=== PATIENT | female | born 1970 | race Two or more races ===

== ENCOUNTER 2025-02-01 08:11 | Outpatient (REF) | payer OTHER, SELFPAY ==
--- NOTE | ~2025-02-01 | XR_ITS ---
EXAMINATION: XR KNEE 3 VIEWS LEFT HISTORY: M25.569 - Pain in unspecified knee COMPARISON: There are no prior studies available for comparison. FINDINGS: Standing AP views of both knees and additional lateral and sunrise patellar views of the left knee are submitted. Osseous mineralization is normal. There is no fracture or dislocation. There is moderate osteoarthritis of the medial compartment with joint space narrowing and osteophyte formation. There is mild narrowing of the patellofemoral compartment. There is chondrocalcinosis. There is no joint effusion. XR/XR knee LT 3V IMPRESSION: Osteoarthritis of the left knee as described. Electronically signed by: Guille Nixon MD 02/01/2025 03:06 PM EDT
--- OUTSIDE RECORDS SUMMARY | 2025-02-01 08:16 | XMS_ITS | Clinical Summary ---
Author Organization [facility] Address [address] [place] [phone] Phone Care Team Providers Care Block Handler Name Role Phone Ashish Rangel MD Primary Care Prov ider Allergies No known active allergies Medications acetaminophen (TYLENOL) 325 mg tablet Take 650 mg by mouth every 6 (six) hours as needed. Active TRULICITY 1.5 mg/0.5 mL subcutaneous injection INJECT 1.5 MG EVERY WEEK BY SUBCUTANEOUS ROUTE FOR 90 DAYS. 4 Active losartan (COZAAR) 25 MG tablet Take 25 mg by mouth daily. for blood pressure 4 Active atorvastatin (LIPITOR) 20 MG tablet Take 20 mg by mouth daily. Active Hospital, Clinic, or Other Facility Administered Medication Ordered Dose Route Frequency Start Date End Date Status lidocaine (XYLOCAINE) 1% injection 1 mL 1 mL See Adm Inst See admin instructions 06/23/2024 Active triamcinolone acetonide (KENALOG-40) 40 mg/mL injection 40 mg 40 mg See Adm Inst See admin instructions 06/23/2024 Active Active Problems No known active problems Social History Tobacco Use Types Packs/Day Years Used Date Smoking Tobacco: Never Smokeless Tobacco: Never Tobacco Cessation:Counseling Given: Not Answered Alcohol Use Standard Drinks/Week Comments No 0 (1 standard drink = 0.6 oz pur e alcohol) Education Answer Date Recorded Are you interested in more education? Not on rob e 11/09/2022 Are you concerned about learning? Not on file 11/09/2022 No 11/09/2022 No 11/09/2022 Digital Access Answer Date Recorded No 12/08/2022 No 12/08/2022 No 12/08/2022 Reliable internet access at home? Not on file 12/08/2022 Device with a working camera? Not on file Comments No Sex and Gender Information Value Date Recorded Sex Assigned at Not on file Legal Sex Female 9:34 PM EDT Gender Identity Not on file Sexual Orientation Not on file Last Filed Vital Signs Vital Sign Reading Time Taken Comments Blood Pressure 148/90 10/18/2022 1:30 PM EDT Pulse 68 10/18/2022 1:30 PM EDT Temperature 36.4 C (97.5 F) 10/18/2022 1:25 PM EDT Respiratory Rate 18 10/18/2022 1:30 PM EDT Oxygen Saturation 96% 10/18/2022 1:30 PM EDT Inhaled Oxygen Concentration - - Weight 76.7 kg (169 lb) 10/12/2022 9:25 AM EDT Height 152.4 cm (5') 10/12/2022 9:25 AM EDT Body Mass Index 33.01 10/12/2022 9:25 AM EDT Plan of Treatment Health Maintenance Due Date Last Done Comments DEPRESSION SCREENING 1982 HEPATITIS C SCREENING 1988 HIV ONE-TIME SCREENING (18-65 YEARS) 1988 COLOGUARD 12/31/2015 COLONOSCOPY 12/31/2015 COLORECTAL CANCER SCREENING 12/31/2015 FIT TEST 12/31/2015 FOBT 12/31/2015 SIGMOIDOSCOPY 12/31/2015 VIRTUAL COLONOSCOPY 12/31/2015 CREATININE LEVEL 01/11/2019 01/11/2018 POTASSIUM LEVEL 01/11/2019 01/11/2018 MAMMOGRAM 12/15/2021 12/16/2019, 04/14, 04/17/2017, Additional history exists COVID-19 VACCINE ( season) 2024 07/10/2021, 10/26/2020, 09/26/2020 PAP SMEAR 08/08/2025 08/08/2022, 07/12/2021 SCREENING FOR DIABETES 10/17/2026 , 12/26/2022, 01/11/2018 Adult Td,Tdap Booster 02/14/2027 02/14/2017, 007 LIPID PANEL 02/27/2029 02/28/2024, 02/12, 11/26/2023, Additional history exists SMOKING STATUS SCREENING (Once After 26 Yrs) Completed 10/18/2022 PNEUMOCOCCAL VACCINES (50+ years) Completed 01/29/2024 ZOSTER VACCINES Completed 01/29/2024, 07/31/2021 HEPATITIS A VACCINES Aged Out No long er eligible based on patient's age to complete this topic HIB VACCINES Aged Out No longer eligi ble based on patient's age to complete this topic MENINGOCOCCAL VACCINES (ACWY) Aged Out No longer eligible based on patient's age to complete this topic MENINGOCOCCAL VACCINES (B) Aged Out N o longer eligible based on patient's age to complete this topic Medical Devices Not on file Procedures Procedure Name Priority Date/Time Associated Diagnosis Comments PAP TEST Routine 08/08/2022 12:00 AM EST BI MAMMOGRAM DIAGNOSTIC WITH TOMOSYNTHESIS WITH CAD (BILATERAL) Routine 12/16/2019 11:02 AM EDT Unspecified lump in unspecified breast BASIC METABOLIC PANEL STAT 01/11/2018 4:51 AM EDT from Last 3 Months or Most Recently Relevant to Health Maintenance Results * Pap Test (08/08/2022 12:00 AM EST) 08/08/2022 08/09/2022 9:1 9 AM EST Narrative SEE NARRATIVE - 08/14/2022 1:48 PM EST [address] [address] Hrbp: Magalie Velez MD 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 PAP SMEAR (SUREPATH) CE: SPECIMEN ADEQUACY: Satisfactory for evaluation; transformation zone absent/insufficient. INTERPRETATION: NEGATIVE FOR INTRAEPITHELIAL LESION OR MALIGNANCY. 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 Electronically Signed Out By: MARIN Bazzi(ASCP) The Pap test is a screening test primarily for squamous cancers and precursors and has associated false-negative and false-positive results. New technologies such as liquid-based preparations may decrease but will not eliminate all false-negative results. Regular sampling and follow-up of unexplained clinical signs and symptoms are recommended to minimize false negative results. PROCEDURES/ADDENDA HPV Testing (Requested) Ordered Date: 08/09/2022 A. PAP SMEAR (SUREPATH) CE: Human Papilloma Virus Test NEGATIVE for high-risk Human Papilloma Virus types 16, 18, 45 and the Other high risk probe set (Includes 31, 33, 35, 39, 51, 52, 56, 58, 59, 66, 68) Note: Testing performed by [employer] HR-HPV analysis. Clinical correlation is advised. This HPV test was performed at [facility], [address] [place] [address]. This test has been FDA approved for [employer]Path cervical cytology specimens. The accuracy and precision of this test for all other specimen sources has been verified in the Cytopathology Laboratory of the [facility] and has not been cleared or approved by the U.S. Food and Drug Administration. Clinical correlation is advised. CLINICAL HISTORY Date of Last Menstrual Period: Not Provided Menstrual History: Unknown Other Clinical Conditions: Screening Pap SPECIMEN SOURCE A: PAP SMEAR (SUREPATH) CE Patient Name: KEDAR CASTILLO : 1970 (Age: 51) Sex: F Institution: [facility] Location: [facility] Date of Collection: 08/08/2022 Date of Reported: 08/14/2022 13:48 Results to: Katia Franklin NP us Katia Franklin NP CYTOLOGY ORDERABLES Fin al Result SEE NARRATIVE * BI MAMMOGRAM DIAGNOSTIC WITH TOMOSYNTHESIS WITH CAD (BILATERAL) (12/16/2019 11:02 AM EDT) Anatomical Region Laterality Modality Breast Left, Breast Right, Breast Bilateral Bila teral Mammography 12/16/2019 11:0 6 AM EDT Impressions 12/16/2019 11:36 AM EDT No findings to account for the patient's left breast pain or lumps. Small simple benign right breast cysts at 10:00 which may potentially account for the patient's previously noted lumps and pain. No mammographic evidence of malignancy. Recommend return to routine annual surveillance. Findings relayed to the patient via the technologist. BI-RADS CATEGORY: 2 - Benign finding. DENSITY: The breast tissue is heterogeneously dense, an appearance which lowers the sensitivity of mammography. POS - [id number] Narrative 12/16/2019 11:36 AM EDT 48-year-old female who presents for bilateral breast pain and lumps which have resolved. Comparison made to previous on 04/24/2017 and as far back as 01/05/2014. Interpretation made in conjunction with computer-aided detection and tomosynthesis. Standard views obtained. The breasts are heterogeneously dense, which may obscure small masses. Stable lobular breast tissue in the upper central right breast on the MLO view only. No discrete mass. New scattered benign right breast and macrocalcifications. No suspicious calcifications, mass or distortion. Bilateral breast ultrasound was obtained. No abnormality in the left breast. In the right breast there is a cluster of simple cysts (largest measuring 9 mm) at 10:00 4 cm from the nipple corresponding to the MLO view mammographic findings. Procedure Note Rylee Lemons MD - 12/16/2019 48-year-old female who presents for bilateral breast pain and lumps whichhave resolved. Comparison made to previous on 04/24/2017 and as far backas 01/05/2014. Interpretation made in conjunction with computer-aideddetection and tomosynthesis. Standard views obtained. The breasts are heterogeneously dense, which mayobscure small masses. Stable lobular breast tissue in the upper centralright breast on the MLO view only. No discrete mass. New scatteredbenign right breast and macrocalcifications. No suspiciouscalcifications, mass or distortion. Bilateral breast ultrasound was obtained. No abnormality in the leftbreast. In the right breast there is a cluster of simple cysts (largestmeasuring 9 mm) at 10:00 4 cm from the nipple corresponding to the MLOview mammographic findings. IMPRESSION: No findings to account for the patient's left breast pain or lumps. Smallsimple benign right breast cysts at 10:00 which may potentially accountfor the patient's previously noted lumps and pain. No mammographicevidence of malignancy. Recommend return to routine annual surveillance.Findings relayed to the patient via the technologist. BI-RADS CATEGORY: 2 - Benign finding. DENSITY: The breast tissue is heterogeneously dense, an appearance whichlowers the sensitivity of mammography. POS - [id number] us Jeff WALTON IMG MG EXAMS Final Result * (ABNORMAL) Basic metabolic panel (01/11/2018 4:51 AM EDT) SODIUM 139 133 - 146 mmol/L [facility] CHLORIDE 101 96 - 108 mmol/L [facility] POTASSIUM 3.7 3.3 - 5.1 mmol/L [facility] CO2 26 21 - 35 mmol/L [facility] BUN 8 6 - 19 mg/dL [facility] CREATININE 0.60 0.5 - 1.5 mg/dL [facility] GLUCOSE 112(H) 70 - 99 mg/dL [facility] CALCIUM 9.0 8.4 - 10.3 mg/dL [facility] EGFR 109 >59 mL/min/1.7 3m2 [facility] Comment:If patient is black, multiply result by 1.159. Estimated glomerular filtration rate calculated using the CKD-EPI equation. ANION GAP 16 10 - 20 mmol/L [facility] Blood 01/11/2018 4:51 AM EDT 01/11/2018 4:58 AM EDT us Sterling Felix MD LAB BLOOD ORDERABLES Final Re sult [facility] [address] [place] [address] from Last 3 Months or Most Recently Relevant to Health Maintenance Insurance [facility] [place] [address] [place] [address] [facility] Advance Directives For more information, please contact: [phone] (9AM - 5PM [facility], Saturday-Saturday) * Full Code (Latest Code Status on File) Date Activated Date Inactivated Comments 10/18/2022 11:12 AM Question Answer Comments Code Status Confirmed With: Patient Care Teams Block Handler Relationship Specialty Start Date End Date Ashish Rangel MD [email or web address] PCP - General Family Medicine 06/01/20 Additional Source Comments The information contained in this document represents components of the legal health record. It is not the complete legal health record.[facility]
--- OUTSIDE RECORDS SUMMARY | 2025-02-01 08:16 | XMS_ITS | Data Portability ---
Author Organization [facility], [facility] Address [address] [place] [address] Care Team Providers Care Insurance Commissioner Name Role Phone LUL GAGE Certified Personal Finance Counselor MARVIN RUGGIERO Primary Care Provider [facility] Orthopedist ARABELLA DIALLO Sleep Medicine MORENA LORD Sports Medicine Assessment Encounter Date Assessment Date Assessment LastModified by Organization Details LastModified Time 07/14/2024 07/14/2024 weightbearing X-rays of the left knee were previously interpreted demonstrating mild OA and chondrocalcinosis Synovial Analysis (04/29/2024) WBC - [address] [place] [place] - 79% PMN - 21% No crystals seen Lyme PCR - negative Not available 07/14/2024 08:30:17 08/11/2024 08/11/2024 weightbearing X-rays of the left knee were previously interpreted demonstrating mild OA and chondrocalcinosis Synovial Analysis (04/29/2024) WBC - [address] [place] - 79% PMN - 21% No crystals seen Lyme PCR - negative Recent MRI of the left knee was independently interpreted demonstrating moderate medial compartment cartilage loss and mild lateral compartment cartilage loss. Fissuring and irregularity of the patellar cartilage consistent with mild chondromalacia. Degenerative tearing of the medial meniscus noted. Not available 08/11/2024 10:57:23 10/28/2024 10/28/2024 weightbearing X-rays of the left knee were previously interpreted demonstrating mild OA and chondrocalcinosis Synovial Analysis (04/29/2024) WBC - [address] [place] - 79% PMN - 21% No crystals seen Lyme PCR - negative MRI of the left knee from 07/2024 was previously interpreted demonstrating moderate medial compartment cartilage loss and mild lateral compartment cartilage loss. Fissuring and irregularity of the patellar cartilage consistent with mild chondromalacia. Degenerative tearing of the medial meniscus noted. Not available 10/28/2024 13:35:38 Plan of Treatment Reminders Order Date Submit Date Provider Last Modified By Organization Details Last Modified Time Details Appointments Same Day Appt, 2024 09:15A M ANTON Zamorano Not available Not available Not available Lab LEYDI (antinucl ear antibodie s) screen, ifa, serum 2023 024 [facility], [address] [place] [address], [id number], 09/06/2024 14:22:40 CBC 2023 024 [facility], [address] [place] [address], [address], 09/04/2024 12:26:22 ESR (erythroc yte sedimenta tion rate), blood 2023 024 [facility], [address] [place] [address], [address], 09/04/2024 14:43:51 C-reactiv e protein, quantitat keara, serum or plasma 2023 024 [facility], [address] [place] [address], [id number], 09/04/2024 14:09:52 Referral orthopedi c surgeon referral - meniscal injury. and OA L knee - has had 2 corticost eroid injection s. S/P MRI [facility] 07/2024. 2024 025 [email or web address] [facility] [place], [address], 11/26/2024 14:48:27 hand surgeon referral 2023 024 [email or web address] Aliya Goodson MD, [address] [place] [address], [address], 05/22/2024 09:37:37 Procedures None recorded. Surgeries None recorded. Imaging US, guidance [email or web address] (Imaging), [address] [place], [address], 10/28/2024 16:27:26 MRI, knee, w/o contrast - MRI left knee eval for meniscal tear Left knee pain and effusion. No relief with over 8 weeks of PT and CSI. X-rays with only minimal OA 2023 [facility] ([facility]), [address], [place], [address], 07/28/2024 17:58:29 electroca rdiogram [address] [facility], [address], [place], [address], 05/22/2024 08:28:37 XR, hand - Bilateral hands 2023 024 [facility] [address], [place], [address], 05/22/2024 12:29:21 Medication Orders Voltaren Arthritis Pain 1 % topical gel 2024 025 [facility][id number], [address] [place], [address], 11/25/2024 16:31:49 meloxicam 15 mg tablet 2023 024 [facility] #[id number], [address] [place], [address], 07/14/2024 09:33:16 naproxen 500 mg tablet 2023 024 [facility] #[id number], [address] [place], [address], 07/14/2024 08:42:07 Patient TargetsNo targets recorded. Patient Instructions Encounter Date Encounter Id Patient Instructions Last Modified By Organization Details Last Modified Time 05/21/2024 [id number] Carpal tunnel syndrome occurs when the median nerve, which runs from the forearm into the palm, is compressed at the wrist. This can lead to pain, numbness, tingling, or weakness in the hand and fingers. Activity Modifications: Limit repetitive hand motions: If possible, reduce activities that require repetitive wrist and hand movements, especially those that involve gripping or wrist flexion. Take frequent breaks: If your work or hobbies involve repetitive hand or wrist actions, take breaks every 10-15 minutes. Avoid extreme wrist positions: Try to keep your wrist in a neutral position. Avoid bending it too far up or down. Wrist Splints Wearing a wrist splint, especially at night, can help keep the wrist in a neutral position and reduce pressure on the median nerve. Follow your healthcare provider s instructions on when and how long to wear the splint each day. Exercises and Stretching Nerve gliding exercises: These can help maintain flexibility and reduce compression of the median nerve. Stretching exercises: Gently stretch your fingers, hands, and wrists to relieve tension. Avoid exercises that cause pain. Avoid Aggravating Factors Limit vibration exposure: Avoid prolonged use of vibrating tools or activities that increase wrist strain. Ergonomics: Ensure that your workspace is set up to minimize wrist strain. Adjust your keyboard, mouse, and chair to avoid wrist flexion or extension. Cold or Heat Therapy Ice packs: Apply an ice pack to the wrist for 10-15 minutes, several times a day, to reduce inflammation and numb pain. Warm compresses: Alternatively, use a warm compress to relax muscles, especially before exercises. Avoid if it increases symptoms. Medications Anti-inflammatory medications, like ibuprofen, may help reduce swelling and relieve pain. If symptoms persist or worsen despite self-care, contact your healthcare provider. Severe pain, increasing numbness, or weakness that affects hand function may require additional treatments, including possible surgical intervention. Pleurisy is inflammation of the pleura, the thin layer of tissue covering the lungs and lining the chest cavity. This inflammation can cause sharp chest pain, especially when breathing, coughing, or sneezing. Although painful, shallow breathing can increase the risk of lung infections. Practice gentle deep breathing exercises to help expand your lungs without causing strain. Avoid strenuous activities that might increase chest pain, like heavy lifting or vigorous exercise, until symptoms improve. Practice good posture: Sitting upright can ease the pressure on your lungs, helping you breathe more comfortably. When to Seek Medical Help: Severe or worsening pain: If your pain increases or spreads, especially if it s affecting other parts of the chest or back. Shortness of breath: If you re finding it increasingly hard to breathe, seek medical help immediately. Fever or chills: Pleurisy can sometimes be caused by an infection, so if you develop a fever, consult your healthcare provider for evaluation. [email or web address] Not available 05/21/2024 16:51:46 07/14/2024 [id number] Have MRI done Use Meloxicam as prescribed Follow-up after your MRI Not available 07/14/2024 08:42:56 All of the patients questions were answered and they understand the plan of care. Thank you for allowing me to participate in the care of your patient. Please feel free to contact me with any questions regarding their care. Not available 07/14/2024 09:30:56 08/11/2024 [id number] Continue with ho me physical therapy Use as needed ibuprofen (Advil) for pain Follow-up as needed Not available 08/11/2024 10:50:35 All of the patients questions were answered and they understand the plan of care. Thank you for allowing me to participate in the care of your patient. Please feel free to contact me with any questions regarding their care. Not available 08/11/2024 10:55:06 10/28/2024 [id number] Rest and ice for the next week Restart physical therapy in approximately 7-10 days Check your blood sugar more often this week and call for any elevated numbers Follow-up as needed for worsening or return of pain Seek immediate attention for any redness, fevers, chills, worsening or severe pain, or any other concerning symptoms. Not available 10/28/2024 13:28:31 All of the patients questions were answered and they understand the plan of care. Thank you for allowing me to participate in the care of your patient. Please feel free to contact me with any questions regarding their care. Not available 10/28/2024 13:33:45 Reason for Referral Hand Surgeon Referral for Ca rpal tunnel syndrome Referring Physician: Ronnie Fernández, [facility], Encounter Date: 05/21/2024 Orthopedic Surgeon Referral for Osteoarthritis of left knee joint meniscal injury. and OA L knee - has had 2 corticosteroid injections. S/P MRI [facility] 07/2024. Referring Physician: Douglas Mendes [facility], Encounter Date: 11/25/2024 Results Created Date Observation Date Name Description Value Unit Range Abnormal Flag Note LastModifiedBy Organization Detail LastModifiedTime 04/29/2004/29/2024 SYNOV IAL FLUID BHAVYA SIS fluid color PALE YELLOW pale yellow Not Available [address], [address], 04/29/2024 14:18:10 04/29/20 24 04/29/2024 SYNOV IAL FLUID BHAVYA SIS fluid clarity HAZY clear Not Available [address], [address], 04/29/2024 14:18:10 04/29/20 24 04/29/2024 SYNOV IAL FLUID BHAVYA SIS fluid viscosity LOW high Not Available [address], [address], 04/29/2024 14:18:10 04/29/20 24 04/29/2024 SYNOV IAL FLUID BHAVYA SIS fluid crystals NONE SEEN none seen Not Available [address], [address], 04/29/2024 14:18:10 04/29/20 24 04/29/2024 SYNOV IAL FLUID BHAVYA SIS WBC-bf count 931 cells /uL 0-200 high Not Available [address], [address], 04/29/2024 14:18:10 04/29/20 24 04/29/2024 SYNOV IAL FLUID BHAVYA SIS RBC-bf count 3000 cells /uL 0-1000 0 Not Available [address], [address], 04/29/2024 14:18:10 04/29/20 24 04/29/2024 SYNOV IAL FLUID BHAVYA SIS MN% 79.2 % 0.0-75 .0 high Not Available [address], [address], 04/29/2024 14:18:10 04/29/20 24 04/29/2024 SYNOV IAL FLUID BHAVYA SIS PMN% 20.8 % 0.0-25 .0 Not Available [address], [address], 04/29/2024 14:18:10 04/29/20 24 04/29/2024 SYNOV IAL FLUID BHAVYA SIS TC-bf absolute 900 cells /uL Not Available [address], [address], 04/29/2024 14:18:10 04/29/20 24 05/01/2024 BORRE CHRISTIANO SPECI ES DNA, QL REAL TIME PCR, MISC source FLUID, SYNOVI AL Not Available [facility] [address], [address], 05/01/2024 21:33:05 04/29/2005/01/2024 BORRE CHRISTIANO SPECI ES DNA, QL REAL TIME PCR, MISC borrelia species DNA, ql real time PCR, misc NOT DETECT ED not detect ed normal This test was devel oped and its bhavya tical perfo rmanc e em cteri stics have been deter mined by [facility]. It has not been clear ed or appro caleb by the FDA. This assay has been valid ated pursu ant to the CLIA regul ation s and is used for clini valentin purpo ses. For addit ional infor camilo burks e refer to https ://ed ucati on.qu estdi lindaChromasun tics. com/f aq/fa q224 (This link is being provi ded for infor castro mcgovern/ educeusebio valentine l purpo ses only. ) Not Available [facility] [address], [address], 05/01/2024 21:33:05 05/01/20 24 05/01/2024 POC GLU POC glu 110 70 - 100 high Not Available [facility] [address] [place] [address], [address], 05/01/2024 08:45:20 09/04/19 25 09/04/2024 CBC WBC 7.79 K/ L 3.98-1 0.04 Not Available [address], [address], 09/04/2024 12:26:22 09/04/19 25 09/04/2024 CBC RBC 4.17 M/ L 3.93-5 .22 Not Available [address], [address], 09/04/2024 12:26:22 09/04/19 25 09/04/2024 CBC HGB 13.2 g/dL 11.2-1 5.7 Not Available [address], [address], 09/04/2024 12:26:22 09/04/19 25 09/04/2024 CBC HCT 39.2 % 34.1-4 4.9 Not Available [address], [address], 09/04/2024 12:26:22 09/04/19 25 09/04/2024 CBC MCV 94.0 fL 79.4-9 4.8 Not Available [address], [address], 09/04/2024 12:26:22 09/04/19 25 09/04/2024 CBC MCH 31.7 pg 25.6-3 2.2 Not Available [address], [address], 09/04/2024 12:26:22 09/04/19 25 09/04/2024 CBC MCHC 33.7 g/dL 32.2-3 5.5 Not Available [address], [address], 09/04/2024 12:26:22 09/04/19 25 09/04/2024 CBC plt 328 K/ L 182-36 9 Not Available [address], [address], 09/04/2024 12:26:22 09/04/19 25 09/04/2024 CBC MPV 10.2 fL 9.4-12 .3 Not Available [address], [address], 09/04/2024 12:26:22 09/04/19 25 09/04/2024 CBC neut% 58.8 % 34.0-7 1.1 Not Available [address], [address], 09/04/2024 12:26:22 09/04/19 25 09/04/2024 CBC neut# 4.59 1.56-6 .13 Not Available [address], [address], 09/04/2024 12:26:22 09/04/19 25 09/04/2024 CBC lymph % 31.1 % 19.3-5 1.7 Not Available [address], [address], 09/04/2024 12:26:22 09/04/19 25 09/04/2024 CBC lymph # 2.42 K/ L 1.18-3 .74 Not Available [address], [address], 09/04/2024 12:26:22 09/04/19 25 09/04/2024 CBC mono% 8.1 % 4.7-12 .5 Not Available [address], [address], 09/04/2024 12:26:22 09/04/19 25 09/04/2024 CBC mono# 0.63 0.24-0 .56 high Not Available [address], [address], 09/04/2024 12:26:22 09/04/19 25 09/04/2024 CBC eo% 1.2 % 0.7-5. 8 Not Available [address], [address], 09/04/2024 12:26:22 09/04/19 25 09/04/2024 CBC eo# 0.09 0.04-0 .36 Not Available [address], [address], 09/04/2024 12:26:22 09/04/19 25 09/04/2024 CBC baso% 0.4 % 0.1-1. 2 Not Available [address], [address], 09/04/2024 12:26:22 09/04/19 25 09/04/2024 CBC baso# 0.03 0.00-0 .08 Not Available [address], [address], 09/04/2024 12:26:22 09/04/19 25 09/04/2024 CBC RDW-CV 12.6 % 11.7-1 4.4 Not Available [address], [address], 09/04/2024 12:26:22 09/04/19 25 09/04/2024 CBC Ig% 0.400 % 0.000- 1.500 Ig % >0.5 Indic ates possi ble Left Shift Not Available [address], [address], 09/04/2024 12:26:22 09/04/19 25 09/04/2024 CBC Ig# 0.030 0.000- 0.093 Not Available [address], [address], 09/04/2024 12:26:22 09/04/19 25 09/04/2024 CBC NRBC% 0.0 % 0.0-0. 2 Not Available [address], [address], 09/04/2024 12:26:22 09/04/19 25 09/04/2024 CBC NRBC# 0.000 0.000- 0.012 Not Available [address], [address], 09/04/2024 12:26:22 09/04/19 25 09/04/2024 HGB A1C hemoglobin A1C 6.3 % 4.8-6. 0 high Goal: <7% in Patie nts with Diabe woody An A1c betwe en 5.7-6 .4% is ident ified as pre-d iabet es and sugge sts risk for progr essio n to diabe woody Two a1c value s of 6.5% or highe r is consi stent with a diagn osis of diabe woody but may need furth er confi rmati on Not Available [address], [address], 09/04/2024 12:48:38 09/04/19 25 09/04/2024 HGB A1C estimated average glucose 134.1 mg/dL Not Available [address], [address], 09/04/2024 12:48:38 09/04/19 25 09/04/2024 C-LUZMA CTIVE PROTE IN (RCRP ) C-reactive protein (rcrp) 2.9 mg/dL 0.5-9. 0 Not Available [address], [address], 09/04/2024 14:09:52 09/04/19 25 09/04/2024 BASIC METAB OLIC PANEL glucose 101 mg/dL 70-100 high Not Available [address], [address], 09/04/2024 14:09:53 09/04/19 25 09/04/2024 BASIC METAB OLIC PANEL BUN 10 mg/dL 7-18 Not Available [address], [address], 09/04/2024 14:09:53 09/04/19 25 09/04/2024 BASIC METAB OLIC PANEL creatinine 0.6 mg/dL 0.8-1. 3 low Not Available [address], [address], 09/04/2024 14:09:53 09/04/19 25 09/04/2024 BASIC METAB OLIC PANEL B/C 16.7 ratio Not Available [address], [address], 09/04/2024 14:09:53 09/04/19 25 09/04/2024 BASIC METAB OLIC PANEL GFR >=60ML /MIN mL/mi n normal >=60m L/min - Emily l or midly reduc ed <60mL /min- Decre ased kidne y funct ion <15mL /min - Kidne y failu re [facility] calcu lates estim ated Glome rular Filtr ation Rate (eGFR ) using the Chron ic Kidne y Disea se Epide miolo gy Colla borat ion (CKD- EPI) Equat ion (Bozena erickson et. al 2020) as recom jae d by the Natio nal Kidne y Found ation . eGFR is based on age, serum creat inine , and sex. CKD-E PI does not calcu late eGFR by race, does not apply to child kierra (age <18 years ), and shoul d not be used in pregn terell. Not Available [address], [address], 09/04/2024 14:09:53 09/04/19 25 09/04/2024 BASIC METAB OLIC PANEL sodium 142 mmol/ L 136-14 5 Not Available [address], [address], 09/04/2024 14:09:53 09/04/19 25 09/04/2024 BASIC METAB OLIC PANEL potassium 4.5 mmol/ L 3.5-5. 1 Not Available [address], [address], 09/04/2024 14:09:53 09/04/19 25 09/04/2024 BASIC METAB OLIC PANEL chloride 105 mmol/ L 96-107 Not Available [address], [address], 09/04/2024 14:09:53 09/04/19 25 09/04/2024 BASIC METAB OLIC PANEL anion gap 9.3 5.0-15 .0 Not Available [address], [address], 09/04/2024 14:09:53 09/04/19 25 09/04/2024 BASIC METAB OLIC PANEL CO2 28 mmol/ L 21-32 Not Available [address], [address], 09/04/2024 14:09:53 09/04/19 25 09/04/2024 BASIC METAB OLIC PANEL calcium 9.1 mg/dL 8.5-10 .3 Not Available [address], [address], 09/04/2024 14:09:53 09/04/19 25 09/04/2024 LIPID PANEL cholesterol 239 mg/dL <200 mg/dl Erica able 200-2 39 mg/dl Borde rline High >240 mg/dl High Not Available [address], [address], 09/04/2024 14:09:54 09/04/19 25 09/04/2024 LIPID PANEL triglyceride s 182 mg/dL <150 mg/dL Emily l 150-1 99 mg/dL Borde rline High 200-4 99 mg/dL High >500 mg/dL Very High Not Available [address], [address], 09/04/2024 14:09:54 09/04/19 25 09/04/2024 LIPID PANEL direct HDL 43 mg/dL <40 mg/dl - Major Risk for CHD >60 mg/dl - Negat keara Risk for CHD Not Available [address], [address], 09/04/2024 14:09:54 09/04/19 25 09/04/2024 LDL - CALCU LATED LDL - calculated 160 RISK CATEG ORY LDL GOAL _ CHD or CHD Risk Equiv alent s <100 mg/dl (10-y ear risk >20%) 2+ Risk Facto rs <130 mg/dl (10-y ear risk <= 20%) 0-1 Risk Facto r <160 mg/dl [facility] all peopl e with 0-1 risk facto r have a 10 year risk <10%, thus 10 year risk asses ment in peopl e with 0-1 risk facto r is not necramesh aleks. Not Available [address], [address], 09/04/2024 14:09:55 09/04/19 25 09/04/2024 ESR sed rate 37.0 0.0-15 .0 high Not Available [address], [address], 09/04/2024 14:43:51 09/04/19 25 09/06/2024 LEYDI SCREE N, IFA, W/REF L TITER AND PATTE RN LEYDI screen, ifa NEGATI VE negati ve normal LEYDI IFA is a first line scree n for detec ting the prese nce of up to appro ximat enoch 150 autoa ntibo dies in vario us autoi mmune disea ses. A negat keara LEYDI IFA resul t sugge sts an LEYDI-a ssoci ated autoi mmune disea se is not prese nt at this time, but is not defin itive . If there is high clini valentin suspi cion for Sjogr en's syndr ome, testi ng for anti- SS-A/ Ro antib renu shoul d be consi dered . Anti- Wendy-1 antib renu shoul d be consi dered for clini brayan suspe cted infla mmato ry myopa ector . AC-0: Negat keara Inter natio nal Conse nsus on LEYDI Allen rns (http s://d oi.or g/10. 1515/ [facility]2017- 0052) For addit ional infor camilo burks e refer to http: //[facility] amando ellis.Que stDia gnost ics.c om/fa q/FAQ 177 (This link is being provi ded for infor castro nal/ educa meme l purpo ses only. ) Not Available [facility] [address] [place] [address], [place], [address], 09/06/2024 14:22:40 09/04/19 25 09/08/2024 MICRO ALBUM IN/CR EATIN INE RATIO PANEL , URINE microalbumin 14.5 mg/L 1.3-20 .0 Not Available [address], [address], 09/08/2024 16:47:55 09/04/19 25 09/08/2024 MICRO ALBUM IN/CR EATIN INE RATIO PANEL , URINE creatinine urine 97.9 mg/dL 30.0-1 25.0 Not Available [address], [address], 09/08/2024 16:47:55 09/04/19 25 09/08/2024 MICRO ALBUM IN/CR EATIN INE RATIO PANEL , URINE microalb/cre at ratio 14.8 mg/g_ creat 0.0-29 .0 Not Available [address], [address], 09/08/2024 16:47:55 05/21/20 24 05/21/2024 elect rocar diogr am No observ ation record ed. [address], [address], 05/22/2024 13:19:07 05/21/20 elect rocar diogr am No observ ation record ed. [email or web address] Not Available 2023 08:22:59 05/21/20 elect rocar diogr am No observ ation record ed. [email or web address] Not Available 2023 08:23:00 05/22/20 24 05/21/2024 elect rocar diogr am No observ ation record ed. [address], [address], 05/22/2024 10:12:54 05/22/20 24 05/22/2024 XR, hand CLINIC AL HISTOR Y: Bilate ral hand pain. TECHNI QUE: Three views of the right and left hands obtain ed. COMPAR SAMUEL: None. FINDIN GS: RIGHT There is no acute fractu re, sublux ation, or disloc ation. The joint spaces are preser caleb. Bone minera lizati on is within normal limits . The soft tissue s are unrema rkable . LEFT There is no acute fractu re, sublux ation, or disloc ation. The joint spaces are preser caleb. There is stable endost eal cortic al thicke adrien of the proxim al phalan x of the first digit. The soft tissue s are unrema rkable . IMPRES MARCI: 1. No acute bone abnorm ality. 2. No signif icant degene rative change . Readin g Physic esau: Carter Johnson ms [facility] ([facility]) [address], [place], [address], 06/08/2024 10:01:14 05/25/20 24 05/25/2024 XR, chest CLINIC AL HISTOR Y: Centra l chest pain. TECHNI QUE: Fronta l view and latera l view of the chest obtain ed. COMPAR SAMUEL: 01/14/20 18 FINDIN GS: The heart is normal in size and config uratio n.Ther e is no hilar or medias tinal enlarg ement. There is no focal lung consol idatio n or infilt rate. The bony thorax is intact . IMPRES MARCI: No acute diseas e. German smiley Physic esau: Carter Johnson ms [facility] (Im[facility]) [address] , [place], [address], 06/08/2024 10:01:14 07/28/19 25 07/24/2024 MRI, knee, w/o contr ast [facility] Access ion Number : [id number] Patien t Name: Mar[facility] Record Number : [id number] Date of : 1970 Date of Exam: 2024 Referr ing Physic esau: [facility] [address] [place] [address], [place] [id number] Exam: MR Knee (C-) CPT 77412 - Left Room Descri ption: Edward Siem Espr 1.5 Histor y: Left knee pain and effusi on with no relief with over 8 weeks of physic al therap y and cortic ostero id inject ion, only minima l osteoa rthrit is on x-ray. Clinic al concer n for menisc al tear. The patien t report s anteri or consta nt left knee pain and swelli ng for about a year with no known injury . Techni que: MRI of the left knee was perfor med withou t intrav enous contra st. Compar samuel: None. Findin gs: Joint effusi on: No joint effusi on is presen t. Hoffa' s fat pad is unrema rkable . Menisc i: Interm ediate intram enisca l signal is seen in the medial menisc us with extens ion to the inferi or articu lar surfac e in the body (image s 10 and 11 of series 4). Slight irregu larity of the free margin in the latera l menisc al body sugges ting free margin frayin g. Tendon s and ligame nts: The ACL and PCL are intact . The collat eral ligame nts are unrema rkable . The ilioti bial band is unrema rkable . The extens or mechan ism appear s normal . Articu lar cartil age and bone: There is chondr al thinni ng in the weight bearin g portio n of both the medial and latera l compar tments with chondr al loss greate st on the medial side. There is irregu lar chondr al loss breaker hand iorly in the medial femora l condyl e with adjace nt subcho ndral marrow edema and subcho ndral cysts. Mild bony prolif eratio n of the medial joint line. There is irregu lar chondr al loss at the patell ar apex and throug hout the trochl ea, greate st in the superi or aspect . Impres marci: 1. Mild to modera te tricom partme ntal degene rative change . 2. Degene ration in the medial menisc us with superi mposed tear along the inferi or articu lar surfac e in the body. 3. Free margin frayin g in the latera l menisc al body.. Electr onical ly Signed By: Mindy Scott ra, MD [address] [facility] ([facility]) [address], [place], [address], 08/11/2024 10:57:20 07/28/19 25 07/24/2024 MRI, knee No observ ation record ed. [facility] [address] [place] [address], [place], [address], 08/11/2024 10:57:21 10/02/19 25 10/01/2024 MAMMO , scree adrien, tomos ynthe sis, bilat eral MAMMO, SCREEN , JAY, BILAT: 025. BI-RAD S: 1 CLINIC AL: 53-yea r old Female for Bilate ral Screen ing Mammog fabiola. Jackelyn Lawrence lifeti me risk of 5.5%. No person al or first- degree family histor y of breast cancer . PRIOR EXAMS: Multip le prior studie s back throug h 2016. MAMMOG LADARIUS TECHNI QUE: 3D mammog ladarius (tomos ynthes is) and 2D mammog ladarius (C-vie w) images are genera lea. Images review ed with a CAD system . DENSIT Y B. There are scatte red areas of fibrog landul ar densit y. MAMMOG LADARIUS FINDIN GS Bilate ral: No suspic ious mass, asymme try, microc alcifi cation , or other abnorm ality seen. CONCLU SIONNo eviden ce of malign terell. RECOMM ENDATI ONS Bilate ralAnn ual screen ing mammog ladarius. ADMINI STRATI VE: A lay summar y was mailed to your patien nica bridges the result s and recomm endati ons for follow -up. OVERAL L ASSESS MENT CATEGO RY BI-RAD S-1: Negati ve. The [employer] o[employer] recomm ends annual screen ing mammog ladarius beginn ing at age 40 for women with averag e risk of breast cancer . ELECTR ONICAL LY SIGNED : Carter Johnson ms, M.D. on 2024 at 03:13: 24 PM German g Physic esau: Carter Johnson ms [email or web address] [facility] (Imaging) [address] , [place], [id number], 10/02/2024 09:07:36 Result Notes Documentation Provider Name and Address Organization Details Recorded Time Xr, Hand : CLINICAL HISTORY: Bilateral hand pain. TECHNIQUE: Three views of the right and left hands obtained. COMPARISON: None. FINDINGS: RIGHT There is no acute fracture, subluxation, or dislocation. The joint spaces are preserved. Bone mineralization is within normal limits. The soft tissues are unremarkable. LEFT There is no acute fracture, subluxation, or dislocation. The joint spaces are preserved. There is stable endosteal cortical thickening of the proximal phalanx of the first digit. The soft tissues are unremarkable. IMPRESSION: 1. No acute bone abnormality. 2. No significant degenerative change. Reading Physician: Lionel Hewitt Not Available [facility] 06/08/2024 10:01:14 Xr, Chest : CLINICAL HISTORY: Central chest pain. TECHNIQUE: Frontal view and lateral view of the chest obtained. COMPARISON: 01/13/2018 FINDINGS: The heart is normal in size and configuration.There is no hilar or mediastinal enlargement. There is no focal lung consolidation or infiltrate. The bony thorax is intact. IMPRESSION: No acute disease. Reading Physician: Lionel Hewitt Not Available [facility] 06/08/2024 10:01:14 Mri, Knee, W/o Contrast : [facility] Accession Number: [id number] Patient Name: Marilee Castillo Date of : 1970 Date of Exam: 07-24-2024 Referring Physician: Morena Lord [address] [address] Exam: MR Knee (C-) CPT 23356 - Left Room Description: Edward Cabrera Espr 1.5 History: Left knee pain and effusion with no relief with over 8 weeks of physical therapy and corticosteroid injection, only minimal osteoarthritis on x-ray. Clinical concern for meniscal tear. The patient reports anterior constant left knee pain and swelling for about a year with no known injury. Technique: MRI of the left knee was performed without intravenous contrast. Comparison: None. Findings: Joint effusion: No joint effusion is present. Hoffa's fat pad is unremarkable. Menisci: Intermediate intrameniscal signal is seen in the medial meniscus with extension to the inferior articular surface in the body (images 10 and 11 of series 4). Slight irregularity of the free margin in the lateral meniscal body suggesting free margin fraying. Tendons and ligaments: The ACL and PCL are intact. The collateral ligaments are unremarkable. The iliotibial band is unremarkable. The extensor mechanism appears normal. Articular cartilage and bone: There is chondral thinning in the weightbearing portion of both the medial and lateral compartments with chondral loss greatest on the medial side. There is irregular chondral loss posteriorly in the medial femoral condyle with adjacent subchondral marrow edema and subchondral cysts. Mild bony proliferation of the medial joint line. There is irregular chondral loss at the patellar apex and throughout the trochlea, greatest in the superior aspect. Impression: 1. Mild to moderate tricompartmental degenerative change. 2. Degeneration in the medial meniscus with superimposed tear along the inferior articular surface in the body. 3. Free margin fraying in the lateral meniscal body.. Electronically Signed By: Mindy Lord MD [address] [place] [address], [phone], [facility] 08/11/2024 10:57:20 Mammo, Screening, Tomosynthesis, Bilateral : MAMMO, SCREEN, JAY, BILAT: 10/01/2024. BI-RADS: 1 CLINICAL: 53-year old Female for Bilateral Screening Mammogram. Tyrer-Cuzick lifetime risk of 5.5%. No personal or first-degree family history of breast cancer. PRIOR EXAMS: Multiple prior studies back through 2017. MAMMOGRAPHY TECHNIQUE: 3D mammography (tomosynthesis) and 2D mammography (C-view) images are generated. Images reviewed with a CAD system. DENSITY B. There are scattered areas of fibroglandular density. MAMMOGRAPHY FINDINGS Bilateral: No suspicious mass, asymmetry, microcalcification, or other abnormality seen. CONCLUSIONNo evidence of malignancy. RECOMMENDATIONS BilateralAnnual screening mammography. ADMINISTRATIVE: A lay summary was mailed to your patient indicating the results and recommendations for follow-up. OVERALL ASSESSMENT CATEGORY BI-RADS-1: Negative. The [employer] recommends annual screening mammography beginning at age 40 for women with average risk of breast cancer. ELECTRONICALLY SIGNED: Lionel Hewitt M.D. on 10/01/2024 at 03:13:24 PM Reading Physician: Lionel Simmons RN [facility] 10/02/2024 09:07:36 Problems Name Problem SNOMED Code Status Onset Date Resolution Date Notes Provider Name and Address Organization Details Recorded Time History of Helicoba cter pylori infectio n 31347471761 763933 Active Mindi Warren MA [facility] 3 10:05:23 Right lower quadrant pain 779744481 Completed 200006/03/2013 Diandra Rendon NP [address] [place] [address] [place], [address], [facility] 5 10:38:07 Female genital organ symptoms 142182621 Completed 200006/03/2013 Diandra Rendon NP [address] [place], [place] [address], [address], [facility] 5 10:38:07 Aphthous ulcer of mouth 045995522 Completed 200206/03/2013 Diandra Rendon NP [address] [place], [place] [address], [address], [facility] 5 10:38:07 Allergic rhinitis caused by pollen 57785823 Completed 200205/19/2010 Diandra Rendon NP [address] [place], [address], [facility] 5 10:38:07 On examinat ion - a rash Completed 200306/03/2013 Diandra Rendon NP [address] [place] [address] [place], [address], [facility] 5 10:38:07 Acute cystitis 79370054 Completed 200405/19/2010 Diandra Rendon NP [address] [place] [address] [place], [address], [facility] 5 10:38:07 Pruritic disorder 584275421 Completed 200511/26/2014 Diandra Rendon NP [address] [place] [address] [place], [address], [facility] 5 10:38:07 Cyst of ovary 76629643 Completed 200511/26/2014 Diandra Rendon NP [address] [place], [place] [address], [address], [facility] 5 10:38:07 Vaginiti s and vulvovag initis Completed 200506/03/2013 Diandra Rendon NP [address] [place] [address] [place], [address], [facility] 5 10:38:07 Abdomina l pain 50764480 Completed 200506/03/2013 Diandra Rendon NP [address] [place] [address] [place], [address], [facility] 5 10:38:07 Gastroes ophageal reflux disease 917350599 Active 2007 Mindi Warren MA [facility] 3 10:05:23 Blood in urine 68499350 Completed 200711/26/2014 Diandra Rendon NP [address] [place], [place] [address], [address], [facility] 5 10:38:07 Irregula r periods 80685823 Completed 200706/03/2013 Diandra Rendon NP [address] [facility], [place], [address], [facility] 5 10:38:07 Pain of breast 51368007 Completed 200706/03/2013 Diandra Rendon NP [address] [facility] [place], [address], [facility] 5 10:38:07 Mixed hyperlip idemia 059894890 Active 2008 HANS Berrios, [facility] 3 10:05:23 Ob[facility] 227160082 [facility] 10:[facility]23 Prediabe woody 256924628 [facility] 10:05:23 Subclini valentin hyperthy roidism 624103686 Active 2018 Dr. Gage 11/26/18: borderli ne, awaiting US results; if US shows nodule would suggest thyroid uptake and scan; if there is no nodule should pursue thyroid stimulat ing immunogl obulin blood test. If overacti ve thyroid nodule is present, treatmen t would be more reasonab le due to this not going away. HANS Berrios, [facility] 3 10:05:23 Steatoti c liver disease 447896194 Active [address] Ligia Trimble, DNP, [employer]ING [employer] OPERATOR-BC [address] [facility] [place], [address], [facility] 3 10:47:02 Bilatera l carpal tunnel syndrome 07736237428 565696 Active 2019 HANS Berrios, [facility] 3 10:05:23 Cervical spondylo sis 542581175 [facility] 2019 [facility] 10:05:23 Cervical radiculo katie 99871366 Active 2019 Mindichacha Warren MA null, [facility] 3 10:05:23 Cyst of right breast 07219297504 410447 Active 2019 Small simple benign right breast cysts at 10:00 Mindi Kelvin HANS null, [facility] 3 10:05:23 Nodule of lung 937904110 Active 2022 LLL [address] 05/27/23 , pending risk repeat CT in 12 months x 1 Ligia Trimble DNP, [address], [place], [address], [facility] 3 10:46:38 Solitary nodule of lung 522799650 Active 2022 Ligia Trimble DNP, [address], [place], [place], [address], [facility] 3 09:56:12 Snoring 32788841 Active 2022 Ligia Trimble DNP, [address] [place], [place], [address], [facility] 3 09:56:13 Alkaline phosphat ase above referenc e range 265274422 Active 2022 Ligia Trimble DNP, [address] [place], [place], [address], [facility] 3 13:49:53 Obstruct keara sleep apnea syndrome 54255328 Active 2023 Gaby Sheikh PA-C [address] [place] [address] [place], [place], [address], [facility] 4 07:49:15 Type 2 diabetes mellitus 45683386 Active 2024 MARVIN RUGGIERO NP [address] [place] [address] [place], [address], [facility] 5 15:36:28 Notes:Some problems listed i n Document: #[id number] could not be added to this patient's chart. Please review this document and add these problems to the patient's chart manually as needed. Problem Notes None recorded. Procedures Surgical History Date Name Laterality Status Provider Name and Address Organization Details Recorded Time 10/29/19 25 US Guided Knee Joint Injection completed Morena Lord MD [address] [place] [address], [address], [facility] 10/28/2024 13:28:22 04/29/20 24 US Guided Knee Joint Injection completed Morena Lord MD [address] [place] [address], [address], [facility] 04/29/2024 09:52:02 12/04/19 24 Retinal Screening completed Subha Iyer [facility] 12/04/2023 10:28:17 10/11/19 24 G2211 completed MARVIN RUGGIERO NP [address] [place] [address], [address], [facility] 10/11/2023 09:13:20 08/26/19 24 Physical Activity Counselling completed Lucretia Chi, PT [address] [place], [address], [facility] 08/26/2023 09:30:10 08/26/19 24 15568: PT Eval Low Complexity completed Lucretia Chi, PT [address] [place] [address], [address], [facility] 08/26/2023 09:30:10 08/26/19 24 Treatment and Advice completed Lucretia Chi, PT [address] [place], [address], [facility] 08/26/2023 15:01:03 04/09/20 22 Ashli - Colonoscopy completed Yordy Cornelius MD [address] [place] [address], [address], [facility] 04/09/2022 09:26:10 10/12/19 22 GM - Carpal Tunnel Injection completed Morena Lord MD [address] [place] [address], [address], [facility] 10/11/2021 09:24:58 04/02/20 19 POC hCG Testing completed [facility] 04/02/2019 16:10:17 04/02/20 19 POC Urinalysis Testing completed [facility] 04/02/2019 16:13:32 01/22/20 10 section completed Lul Gage MD [address] [place] [address], [address], [facility] 11/26/2018 08:49:05 Imaging Results None recorded. Procedure Notes None recorded. Medical Equipment None Reported. Allergies No known drug allergies Medications Name Sig Start Date Stop Date Status Note LastModified by Organization Details LastModified Time cyclobenz aprine 10 mg tablet TAKE 1 TABLET BY MOUTH THREE TIMES A DAY 04/09 completed Not Available Not Available Not Available amoxicill in 500 mg capsule TAKE 2 TABLETS TWICE A DAY BY ORAL ROUTE FOR 14 DAYS. 10/30 completed Not Available Not Available Not Available BD Alcohol Swabs USE TWICE DAILY DIRECTED FOR MONITORI NG GLUCOSE, DX CODE E11.9 active Not Available Not Available No t Available atorvasta tin 20 mg tablet TAKE 1 TABLET BY MOUTH EVERY DAY active Not Available Not Available No t Available Anusol-HC 2.5 % rectal cream with applicato r Apply to rectal area TID as needed. 2012 active Not Available Not Available Not Avai lable cetirizin e 10 mg tablet TAKE 1 TABLET BY MOUTH EVERY DAY NEEDED 07/05 completed PRN,not taking 0 [facility] Not Available Not Available Not Available ibuprofen 800 mg tablet 04/04 completed Not Available Not Available Not Available clarithro mycin 500 mg tablet TAKE 1 TABLET EVERY 12 HOURS BY MOUTH FOR 14 DAYS. 10/30 completed Not Available Not Available Not Available hydrocodo ne 5 mg-acetam inophen 325 mg tablet TAKE 1 TABLET BY MOUTH EVERY 4 HOURS NEEDED FOR PAIN 04/09 completed Not Available Not Available Not Available meloxicam 15 mg tablet TAKE 1 TABLET BY MOUTH DAILY FOR 10 DAYS AND THEN TAKE 1 TABLET BY MOUTH DAILY NEEDED PAIN active Not Available Not Available No t Available sulfameth oxazole 800 mg-trimet hoprim 160 mg tablet Take 1 tablet every 12 hours by oral route. active Not Available Not Available No t Available tramadol 50 mg tablet TAKE 1-2 TABLETS BY MOUTH EVERY 8 HOURS NEEDED FOR PAIN 01/23 completed Not Available Not Available Not Available triamcino lone acetonide 0.1 % topical cream APPLY THIN COAT TO AFFECTED AREA TWICE A DAY active finished course 04/29/24 Not using 05/01/24 SD Not Available Not Available Not Available amoxicill in 500 mg tablet Take 2 tablets twice a day by oral route for 14 days. 10/30 completed Not Available Not Available Not Available OneTouch Ultra Test strips active Not Available Not Available Not Available benzonata te 100 mg capsule TAKE 1 CAPSULE BY MOUTH THREE TIMES A DAY NEEDED 07/05 completed not taking 0 [facility] Not Available Not Available Not Available hydrocort isone 1 % topical cream APPLY A THIN LAYER TO THE AFFECTED AREA(S) BY TOPICAL ROUTE 2 TIMES PER DAY X 1 WEEK 05/01 completed finished course 04/29/24 Not using 05/01/24 SD Not Available Not Available Not Available triamcino lone acetonide 0.1 % topical ointment APPLY THIN COAT TO AFFECTED AREA TWICE A DAY active Not Available Not Available No t Available losartan 25 mg tablet TAKE 1 TABLET BY MOUTH EVERY DAY FOR BLOOD PRESSURE active Not Available Not Available No t Available gabapenti n 300 mg capsule 01/02 completed No longer taking 07/05/21 tng not currentl y taking 01/02/22 EM Not Available Not Available Not Available omeprazol e 20 mg capsule,d elayed release TAKE 1 CAPSULE BY MOUTH EVERY DAY 01/02 completed no longer taking 07/05/21 not currentl y taking 01/02/22 EM Not Available Not Available Not Available hydrocort isone 2.5 % topical cream APPLY A THIN LAYER TO THE AFFECTED AREA(S) BY TOPICAL ROUTE 2 TIMES PER DAY 2021 active Not Available Not Available Not Avai lable ibuprofen 600 mg tablet TAKE 1 TABLET BY MOUTH EVERY 6 HOURS NEEDED FOR PAIN 04/09 completed Not Available Not Available Not Available norethind mikki (contrace ptive) 0.35 mg tablet TAKE 1 TABLET BY MOUTH EVERY DAY active Not Available Not Available No t Available fluticaso ne propionat e 50 mcg/actua tion nasal spray,svetlana pension SPRAY 2 SPRAYS BY INTRANAS AL ROUTE EVERY DAY NEEDED active Not Available Not Available No t Available loratadin e 10 mg tablet Take 1 tablet every day by oral route as directed for 30 days. 2013 active Not Available Not Available Not Avai lable naproxen 500 mg tablet Take 1 tablet twice a day by oral route with meals for 10 days. 07/14 completed Not Available Not Available Not Available cyclobenz aprine 5 mg tablet Take 1 tablet 3 times a day by oral route as needed for 10 days. 05/15 completed Not Available Not Available Not Available Nortrel (28) 0.5 mg/0.75 mg/1 mg-35 mcg tablet TAKE 1 TABLET BY MOUTH EVERY DAY 10/13 completed Not Available Not Available Not Available nitrofura ntoin monohydra te/macroc rystals 100 mg capsule TAKE 1 CAPSULE BY MOUTH EVERY 12 HOURS FOR 5 DAYS 05/01 completed finished course 04/29/24 Not Available Not Available Not Available naproxen active Not Available Not Avai lable Not Available Advil active Not Available Not Availa ble Not Available [place] 3 Fish Oil active 1000 mg per day Not Available Not Available Not Available diclofena c 1 % topical gel APPLY 2 GRAMS TO THE AFFECTED AREA(S) BY TOPICAL ROUTE 4 TIMES PER DAY active Not Available Not Available No t Available Trulicity 1.5 mg/0.5 mL subcutane ous pen injector INJECT 1.5 MG EVERY WEEK BY SUBCUTAN EOUS ROUTE FOR 90 DAYS. active Not Available Not Available No t Available Trulicity 0.75 mg/0.5 mL subcutane ous pen injector INJECT 1 PEN SUBCUTAN EOUSLY ONCE WEEKLY active Not Available Not Available No t Available OneTouch Delica Plus Lancet 33 gauge USE TWICE DAILY DIRECTED active Not Available Not Available No t Available Vitals Date Recorded Body height Provider Name an d Address Organization Details Last Updated DateTime 10/28/2024 154.94 cm Kaylin Oneal MA [facility] 10/28/2024 12:52:01 Date Recorded Body height Body mass index (BMI) Body weight Heart rate Systolic And Diastolic Provider Name and Address Organization Details Last Updated DateTime 11/25/2024 154.94 cm 30.8 kg/m2 74272.56 g 82 /min 112/72 mm[Hg] Ruthy Quintana [facility] 11/25/2024 15:48:21 Date Recorded Body height Body mass index (BMI) Body weight Heart rate Oxygen saturation Oxygen saturation in Arterial blood by Pulse oximetry Systolic And Diastolic Provider Name and Address Organization Details Last Updated DateTime 4 154.94 cm 30.8 kg/m2 32129.5 6 g 64 /min 99 % 99 % 121/72 mm[Hg] Zaid Carlson [facility] 4 15:37:14 Date Recorded Body height Systolic And Diastolic Provider Name and Address Organization Details Last Updated DateTime 07/14/2024 154.94 cm 120/74 mm[Hg] Kaylin Oneal [facility] 07/14/2024 08:27:12 Social History Question Answer Notes LastModified by Organizat ion Details LastModified Time Tobacco Smoking Status Never Smoker Not Available [facility] 05/31/2011 04:53:49 What Is Your Level Of Caffeine Consumption? Moderate [email or web address] Information not available 04/08/2015 How Much Tobacco Do You Chew? None Information not available 10/27/2013 What Type Of Diet Are You Following? REGULAR [email or web address] Information not available 04/08/2015 Which Illicit Or Recreational Drugs Have You Used? No Recreational Drugs [email or web address] Information not available 11/26/2018 How Many Days In The Past Year Have You Had A Heavy Drinking Consumption (4+ Female, 5+ Male)? 0 Information not available 10/27/2013 Are There Any Guns Present In Your Home? No [email or web address] Information not available 04/08/2015 Live Alone Or With Others? With Others [id number] Information n ot available 05/31/2011 Patient Has Health Care Proxy Signed And In Chart No 04/09/18 [email or web address] Information not available 07/30/2012 Marital Status [id number] In formation not available 05/31/2011 Mosquito Repellent Used Routinely Yes [email or web address] Information not available 04/08/2015 What Was The Date Of Your Most Recent Tobacco Screening? 11/25/2024 [email or web address] Information not available 11/25/2024 How Many Children Do You Have? 5 Information n ot available 05/31/2011 Seat Belts Used Routinely Yes [email or web address] Information not available 04/08/2015 Smoke Alarm In Home Yes Information not available 04/08/2015 How Much Tobacco Do You Smoke? No [email or web address] Information not available 06/16/2020 General Stress Level Low [email or web address] Information not available 04/08/2015 Do You Use Sunscreen Routinely? No Information not available 04/08/2015 Sex: Female Functional Status Question Answer Note LastModified by Organizat ion Details LastModified Time Do you or have you ever used any other forms of tobacco or nicotine? No [email or web address] Information not available 02/01/2023 What is your level of alcohol consumption? Occasional 1 q 6 months [email or web address] Information not available 11/26/2018 Do you or have you ever used smokeless tobacco? 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 Never used electronic cigarettes [email or web address] Information not available 06/16/2020 Mental Status None recorded. Family History Relationship Description Onset Age of this Age Resolved Age Notes LastModified by Organization Details LastModified Time Brother Hypertensive disorder [email or web address] Not available 2014 10:38:13 Brother Diabetes mellitus [email or web address] Not available 2014 10:38:13 Mother Diabetes mellitus [email or web address] Not available 2018 08:44:25 Notes:Cardiovascular: Family history is remarkable for hypertension. brother Endocrine: Family history is remarkable for diabetes mellitus. brother Medical History Condition Response Hyperlipidemia Y Gynecological History Statement/Question Response Hysterectomy N Current Control Method BCPs Date of LMP 11/18/2021 Frequency of Cycle (Q days) 30 Approximate Obstetrics History GPAL:G 0 P 0 0 0 0 Immunizations Vaccine Type Date Status Note Provider Nam e and Address Organization Details Recorded Time Influenza, split virus, trivalent, preservative 1 completed Not Available [facility] 08/01/2019 02:26:40 Tdap 7 completed Mindi Warren MA [facility] 08/08/2022 10:05:24 Influenza, split virus, trivalent, PF 3 completed Not Available [facility] 08/01/2019 02:18:32 Influenza, split virus, quadrivalent, PF 4 completed Not Available [facility] 08/01/2019 02:29:19 Influenza, split virus, quadrivalent, PF 5 completed Not Available [facility] 08/01/2019 02:37:19 Influenza, split virus, quadrivalent, PF 6 completed Not Available [facility] [facility] 08/01/2019 02:20:43 Td (adult), 2 Lf tetanus toxoid, preservative free, adsorbed 7 completed Not Available [facility] 08/01/2019 02:37:57 Influenza, split virus, quadrivalent, PF 7 completed Not Available [facility] 08/01/2019 02:28:43 Influenza, split virus, quadrivalent, PF 8 completed Not Available [facility] 08/01/2019 02:34:17 COVID-19, mRNA, LNP-S, PF, 100 mcg/0.5mL dose or 50 mcg/0.25mL dose 1 completed Elissa Denise CMA null, [facility] 01/31/2024 08:19:06 Influenza, split virus, quadrivalent, PF 2 completed ANTON Casey [address] [place] [address], [id number], [facility] 04/26/2022 09:28:53 COVID-19, mRNA, LNP-S, PF, 100 mcg/0.5mL dose or 50 mcg/0.25mL dose 1 completed Elissa Denise CMA null, [facility] 01/31/2024 08:19:06 Influenza, split virus, quadrivalent, PF 3 completed NILESH Garcia, [facility] 05/15/2023 10:03:56 Influenza, split virus, trivalent, preservative 0 completed Not Available [facility] 08/01/2019 02:28:46 zoster recombinant 2 completed Elissa Denise CMA null, [facility] 01/31/2024 08:19:06 COVID-19, mRNA, LNP-S, PF, 100 mcg/0.5mL dose or 50 mcg/0.25mL dose 1 completed BRIANA Davis, [facility] 01/31/2024 08:19:07 Influenza, split virus, quadrivalent, PF 1 completed BRIANA Davis, [facility] 01/31/2024 08:19:07 zoster recombinant 4 completed BRIANA Davis, [facility] 01/31/2024 08:20:33 Pneumococcal Conjugate, unspecified formulation 4 [facility] 08:21:25 Past Encounters Encounter ID Performer Location Encounter Start Date Encounter Closed Date Diagnosis/Indication Diagnosis SNOMED-CT Code Diagnosis ICD10 Code Diagnosis Note [id number] Joaquin Ramirez, [facility], OFFICE [address] [place] [address] 12/11/2000 16:00:00 08/04/2008 02:02:29 [id number] [facility] [employer] , [facility] [address] [facility] [place] [address] 12/19/2000 13:30:00 08/04/2008 02:02:29 [id number] Syl WALTON , [facility], OFFICE [address] [place] [address] 12/25/2002 09:08:54 08/04/2008 02:02:29 [id number] Syl ORDOÑEZ, [facility], OFFICE [address] [place] [address] 1 12/14/2003 13:42:21 12/14/2003 17:54:12 [id number] Holly Miranda MD , [facility], OFFICE [address] [place] [address] 03/07/2004 16:16:01 03/09/2004 15:02:51 [id number] Randolph Brown III, MD , [facility], OFFICE [address] [place] [address] 1 06/15/2005 08:14:55 06/15/2005 14:41:32 [id number] Syl ORDOÑEZ, [facility], OFFICE [address] [place] [address] 08/24/2005 09:52:59 09/05/2005 08:08:27 [id number] Syl ORDOÑEZ, [facility], OFFICE [address] [place] [address] 12/07/2005 10:21:48 12/07/2005 15:22:09 [id number] [facility] [employer] , [address] [place] [address] 12/17/2005 09:05:13 12/17/2005 14:04:34 [id number] [facility] [employer] [employer] , [address] [place] [address] 1 01/29/2006 13:39:50 01/29/2006 14:43:55 [id number] [facility] LAB LAB - [address] [place] [address] 04/09/2006 14:58:12 04/09/2006 14:58:23 [id number] [facility] [employer] [employer] , [address] [place] [address] 04/12/2006 10:27:30 04/12/2006 11:10:27 [id number] Syl ORDOÑEZ, [facility], OFFICE [address] [place] [address] 04/09/2006 11:00:58 04/15/2006 13:58:35 [id number] MD SMITA Castanon, [facility], OFFICE [address] [place] [address] 1 11/21/2006 09:16:11 11/25/2006 12:04:07 [id number] [facility] - [address] [place] [address] 11/21/2006 10:09:17 11/21/2006 10:09:27 [id number] [facility] [employer] [employer] , [address] [place] [address] 12/20/2006 10:01:28 12/20/2006 11:22:16 [id number] Syl ORDOÑEZ, [facility], OFFICE [address] [place] [address] 01/17/2007 11:38:57 01/17/2007 14:18:56 [id number] [facility] - [address] [place] [address] 01/28/2007 09:23:11 01/28/2007 09:23:18 [id number] [facility] RADIOLOGY [employer] , [facility] [address] [place] [address] 09/08/2007 16:56:03 09/09/2007 07:03:22 [id number] Jennifer Wang NP , [facility], OFFICE [address] [place] [address] [address] [place] [id number] 09/08/2007 16:03:23 08/04/2008 02:02:29 [id number] Holly Miranda MD FP, [facility], OFFICE [address] [place] [id number] 10/16/2007 09:36:49 08/04/2008 02:02:29 [id number] Diandra Rendon NP , [facility], OFFICE [address] [place] [address] [address] [place] [id number] 07/26/2008 15:25:40 08/04/2008 02:02:29 [id number] JENNIFER Barnett, [facility], OFFICE [address] [place] [address] [address] [place] [address] 12/20/2008 12:20:44 12/21/2008 10:25:01 [id number] [facility] [employer] , [address] [place] [address] 12/24/2008 08:58:25 12/27/2008 14:30:47 [id number] [facility] [employer] , [address] [place] [address] 02/10/2009 09:18:08 02/16/2009 14:26:54 [id number] [facility] - [address] [place] [address] 08/09/2008 09:47:36 08/09/2008 09:47:42 [id number] Diandra Rendon NP , [facility], OFFICE [address] [place] [address] [address] [place] [id number] 05/22/2010 10:53:01 05/22/2010 13:27:18 [id number] Guille Card MD FP, [facility], OFFICE [address] [place] [address] [place] [address] 12/12/2010 08:24:31 12/12/2010 11:26:19 [id number] Diandra Rendon NP FP, [facility], OFFICE [address] [place] [address] [address] [place] [id number] 04/10/2011 08:01:41 04/10/2011 08:40:16 [id number] [facility] [employer] , [address] [place] [address] 04/11/2011 09:20:31 04/12/2011 10:49:58 [id number] Cheryl Trinidad D.O. [facility], OFFICE [address] [place] [address] 07/31/2012 09:41:50 07/31/2012 10:34:47 [id number] Edward Bowles MD Radiology , [address] [place] [address] 08/04/2012 13:30:07 08/05/2012 15:33:40 [id number] Cheryl Trinidad D.O. [facility], OFFICE [address] [place] [address] 08/21/2012 09:30:12 08/21/2012 10:17:35 [id number] Mary Garcia MD Radiology , [address] [place] [address] 09/02/2012 13:39:59 09/03/2012 13:51:32 [id number] Mary Garcia MD Radiology , [address] [place] [address] 09/02/2012 13:40:06 09/03/2012 13:52:10 [id number] Cheryl Trinidad D.O. [facility], OFFICE [address] [place] [address] [place] [address] 06/02/2013 13:45:48 06/02/2013 14:37:54 Hemorrhoids 58219788 External hemorrhoid s Advised to increase fiber in diet with more fruits and veggies as well as more water, exercise Will start daily dose of fiber supplement (Benefiber , Metamucil) Given Anusol cream to help with irritation F/U prn Nasopharyngitis 75449094 Discussed likely viral etiology. Advised fluids, ibuprofen, rest RTO with worsening or persistent sxs. [id number] Cheryl Trinidad D.O. , [facility], OFFICE [address] [place] [address] 10/27/2013 11:04:48 10/27/2013 11:47:56 Adult health examination 238299197 The importance of a diet low in fats and simple sugars and higher in lean meats, fruits, vegetables and whole grains was discussed. The importance of regular exercise was discussed. The importance of calcium in the diet was discussed. Stress management program discussed. Patient instructed in protecting skin from the sun. Avoidance of hazardous and harmful drinking was discussed. Safe sexual practices discussed. Safety issues including seat belts, bike helmets ,and home safety were discussed. 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 Td UTD. Uses contraception 28702070 RF Mixed hyperlipidemia 413384104 Trigs 453, HDL 36 Will start omega fish oil 1623-7354 mg per day. Given sheet with info on how to lower triglyceri edgard. Increase exercise RTO in 3 month with labs If c/t >400 will consider lopid. Abdominal pain 23488341 stable Intermitte nt Lower R/L quadrant pain x years+. No recent changes. US nml last year. [id number] Cheryl MaurerOFrancisco [facility], OFFICE [address] [place] [address] 12/16/2013 09:24:55 12/16/2013 09:51:16 Pain of breast 01659899 No mass palpated Suspect musculoske letal etiology Due for mammo so will do screening mammo Advised heat, rest F/U prn Allergic rhinitis 33200672 Will start antihistam ine Loratadine 10 mg qd RF on flonase F/U prn Screening for malignant neoplasm of breast [id number] Diandra Rendon NP , [facility], OFFICE [address] [place] [address] 01/27/2014 13:40:00 01/27/2014 14:04:46 Mixed hyperlipidemia 946236977 Trigs improved to 319 and HDL improved to 43 though still not at gaol Will increase omega fish oil to 2 capsules per day. Given sheet with info on how to lower triglyceri edgard. Increase exercise RTO in 3 month with labs Goal is <200. Fatigue 37855665 [id number] Cheryl Trinidad D.O. , [facility], OFFICE [address] [place] [address] 04/26/2014 10:18:51 04/26/2014 10:50:17 Mixed hyperlipidemia 282308998 TRIgs improving but still too high at 289 Will increase omega fish oil to 3000 mg per day Repeat labs in 3 months. Discussed importance and impact of diet, exercise Screening for malignant neoplasm of cervix 501716275 Influenza vaccine needed [id number] Cheryl Palumbo.Reji , [facility], OFFICE [address] [place] [address] 08/03/2014 15:50:03 08/03/2014 16:22:08 Abdominal pain 52637930 Chronic abd pain with worsening past week UA and preg neg Will check labs below Last pelvic u/s with hx of fibroid Understand s to go to ER with worsening pain [id number] Cheryl Palumbo.Reji , [facility], OFFICE [address] [place] [address] 09/20/2014 09:14:35 09/20/2014 09:52:58 Uses contraception 65558391 RF Abdominal pain 03954365 [id number] Cheryl Trinidad D.O. , [facility], OFFICE [address] [place] [address] 11/02/2014 08:59:04 11/02/2014 09:34:07 Abdominal pain 01820043 Sxs improving reviewed CT of abd/pelvis Discussed importance of keeping diet rich in fiber given diverticul osis F/U prn [id number] Katlyn Phillips NP , [facility], OFFICE [address] [place] [address] 11/26/2014 09:21:16 11/26/2014 10:01:46 Breast lump 61718077 Pain of [facility] 99646260 [id number] Randolph Brown III, MD , [facility], OFFICE [address] [place] [address] 02/10/2015 09:23:05 02/10/2015 09:43:25 Urinary tract infectious disease 37122577 Push fluids f/u if no improvemen t in 72 hours or for fever or back pain. [id number] Diandra Rendon NP , [facility], OFFICE [address] [place] [address] 04/08/2015 14:31:57 04/08/2015 15:17:23 Mixed hyperlipidemia 989484126 due for labs will schedule today Continue to work on diet and exercise as discussed Influenza vaccine needed [id number] 106 Adult heal th examination 567524562 The importance of a diet low in fats and simple sugars and higher in lean meats, fruits, vegetables and whole grains was discussed. 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 Td UTD. Flu shot today Paresthesia 86741060 Neg phalens, tinels but do ? carpal tunnel will get brace and see if any improvemen t given handout too. Palpitations 25129155 Oc curring at times of stress/ang er. Discussed impact stress can have on physical symptoms reviewed calming exercises- sit for 5 minutes when upset will c/t monitor. [id number] Diandra Rendon NP , [facility], OFFICE [address] [place] [address] 06/30/2015 10:23:09 06/30/2015 10:50:35 Viral syndrome 622942437 B34.9 Headache 99417566 R51 Hypertriglyceridemia 302 997386 E78.1 [id number] Cheryl MaurerOFrancisco , [facility], OFFICE [address] [place] [address] 04/04/2016 09:28:40 04/04/2016 10:21:37 Active or passive immunization 559042513 Z23 Paronychia of toe 840917 002 L03.039 increase warm soaksno abx at this pointwill refer to podiatry d/t ongoing nature? of nail removal Chronic low back pain 27 9074312 M54.5 chronic low back painwill refer to PT [id number] Cheryl Trinidad D.O. , [facility], OFFICE [address] [place] [address] 06/22/2016 09:33:43 06/22/2016 16:10:04 Mixed hyperlipidemia 636003390 E78.2 Labs utdLDL good- at goalwill work on diet/exerc ise Adult [facility] examination 115732571 Z00.00 see Risk Assessment and Lifestyle Change Counseling section aboveHM: Pap 04/26/14 with 3 yr repeatlabs utd Counseling 101165216 Z71 .9 Uses oral contraception 9070317 Z30.41 stableRF Pain in toe 450740445 M7 9.674 get xraygiven naproxen 500mg bid [id number] Diandra Rendon NP , [facility], OFFICE [address] [place] [address] 02/14/2017 10:10:16 02/14/2017 10:48:38 Adult health examination 485596837 Z00.00 see Risk Assessment and Lifestyle Change Counseling section aboveHM: Pap todaylipid s utd Counseling 049234985 Z71 .9 Uses oral contraception 7968023 Z30.41 stableRF Screening for malignant neoplasm of cervix 010144949 Z12.4 Active or passive immunization 431910306 Z23 Restless sleep 60110798 G47.9 discussed good sleep hygieneadv ised melatonin 5 mg Abdominal pain 38288641 R10.9 lower abd painlikely r/t constipati on.advised to increase fiber in diet, metamucil [id number] Cheryl Trinidad D.O. [facility], OFFICE [address] [place] [address] 04/17/2017 10:31:49 04/17/2017 10:52:02 Screening mammography 38325790 Z12.31 will do today Active or passive immunization 118144909 Z23 Abdominal pain 91961458 R10.9 ongoing RLQ pain with worsening. Had neg ct in refer to GI for further evaluation . [id number] Cheryl Trinidad D.O. [facility], OFFICE [address] [place] [address] 08/07/2017 10:26:08 08/07/2017 10:42:33 Pain of breast 60430449 N64.4 exam unremarkab le but does have focal tenderness nml mammo 04/2017wil l get U/S of breastlike ly hormonal tenderness - advised tylenol, warm compresses [id number] Guille Card MD , [facility], OFFICE [address] [place] [address] 11/22/2017 08:23:36 11/22/2017 15:28:12 Strain of abdominal muscle 152241423 S39.011A Suspect strain of R obliques. Lungs clear. Abdominal exam benign. No urinary Sx.Recomme nd heat, ibuprofen PRN. Return if worsens or persists. [id number] Cheryl Trinidad D.O. [facility], OFFICE [address] [place] [address] 01/13/2018 15:03:53 01/13/2018 16:27:25 Chest pain 87653575 R07.1 [id number] Cheryl ORDOÑEZ, [facility], OFF[address] [place] [id number] 04/09/2018 15:11:57 04/09/2018 15:38:00 Mixed hyperlipidemia 818578293 E78.2 will repeat Adult heal th examination 321051903 Z00.00 see Risk Assessment and Lifestyle Change Counseling section aboveHM: Pap 09/2016 w/3 yr repeat Counseling 989680258 Z71 .9 Depression screening 171 379422 Z13.89 0 out of 27denies depression depression screening tool administer ed, entered into emr, scored and discussed, time greater than 7.5 minutes Active or passive immunization 956088699 Z23 Pain of to e of right foot 2996472808 26289 M79.674 suspect arthritisw ill get XRAYNSAIDs prn Pain in left knee 431509 1161 90245 M25.562 suspect arthritis will get XRAY NSAIDs prn Family his tory of diabetes mellitus 043444893 Z83.3 check labs [id number] Indiana Lopez , [facility], [address] [place] [address] 10/13/2018 09:08:37 10/13/2018 10:04:48 Pain of multiple joints 24444067 M25.50 Will start with labs - RF, CCP, ESR, CRP, LEYDI and fasting CMP. Follow up in 2 weeks. Will check imaging if pain persists at next visit. Paresthesi a of upper limb 17818237 R20.2 Suspect cervical radiculopa thy. Will check TSH, B12 and CBC in addition to above labs. Will discuss referral to PT and home exercises if labs normal. Helicobact er pylori gastrointestinal tract infection 938639728 B96.81 No acute abdomen. Will treat with triple therapy. Advised she take probiotics while on antibiotic s. Will repeat stool test in 6 weeks (4 weeks after completing antibiotic treatment) to ensure eradicatio n. Follow up here in 2 weeks. Pt advised to seek emergency care with severe abdominal pain, hematemesi s, melena, hematochez ia, intractabl e vomiting/d iarrhea. Contraception care 3693191 5629 Z30.40 Pt with hyperlipid emia and obesity. Discussed increased risk of stroke with estrogen containing OCPs. Based on this conversati on, pt decided with switch to POPs. Discussed this pill must be taken at the same time everyday and that she will likely get irregular breakthrou gh bleeding. We also briefly discussed other progestero ne only methods. [id number] [place] ORDOÑEZ, [facility], [address] [place] [address] 10/30/2018 10:18:51 10/30/2018 11:13:57 Helicobacter pylori gastrointestinal tract infection 614461215 B96.81 Completed triple therapy. Advised she take probiotics while on antibiotic s. Will repeat stool 4 weeks after completing antibiotic treatment to ensure eradicatio n. Snoring 45974965 R06.83 Referred for sleep study. Educated on sleep apnea. Obesity 724815621 E66.9 With mildly elevated fasting blood sugar. Will check A1c. Provided with pt education handout on prediabete s. Weight loss encouraged with adherence to portion control, diet high in fiber and low in carbs and sugars and regular exercise. Low back pain 318499625 M54.5 Asymptomat ic currently. Lumbar spine x-ray ordered. Referred to PT. Visual impairment 277745 003 H54.7 Referred for eye exam. Thyroid st imulating hormone level below reference range 204825228 R94.6 Subclinica l hyperthyro idism. Will recheck TSH in 6 weeks. Paresthesia of hand 3090 07959 R20.2 Advised use of wrist splint at night and at work. [id number] Leeroy Holloway OD [facility], [facility] [address] [place] [address] 11/14/2018 09:15:16 11/14/2018 10:12:02 Presbyopia 49715072 H52.4 [id number] [place] ORDOÑEZ, [facility], [address] [place] [address] 11/24/2018 10:10:56 11/24/2018 11:17:36 Thyroid stimulating hormone level below reference range 789429715 R94.6 Subclinica l hyperthyro idism. Will recheck TSH, T3, T4. US ordered to evaluate for nodules. TSH has been low since 2010. Will refer to endo for further evaluation and management . Pharyngeal dryness 9331375 0657 J39.2 Will treat seasonal allergies with cetirizine 10mg at bedtime, flonase 2 sprays daily. Helicobact er pylori gastrointestinal tract infection 416154386 B96.81 Completed triple therapy. Advised she take probiotics while on antibiotic s. Will repeat stool test now to ensure eradicatio n. Eruption 871825319 R21 OTC hydrocorti sone as needed. Return if rash spreads, changes or with s/sxs of infection. [id number] Lul Gage MD Endocrino lorri, [facility] [address] [place] [address] 11/26/2018 08:31:23 11/26/2018 09:13:35 Subclinical hyperthyroidism 003549152 E05.90 Xerostomia 05754549 R68. 2 Dysphagia 67774082 R13.1 0 [id number] [place] Lopez , [facility], OFFICE [address] [place] [address] 12/23/2018 10:45:48 12/23/2018 16:24:25 Subclinical hyperthyroidism 053506923 E05.90 Continue care plan per endo. Prediabetes 450784985 R7 3.03 A1c 6.1 in 10/31. Discussed diet recommenda tions. Provided with care instructio ns in Iranian. Will recheck A1c and follow up in Apr 2019. Seasonal a llergic rhinitis 369678575 J30.2 Improved. Continue cetirizine 10mg, flonase. Helicobact er pylori gastrointestinal tract infection 718547125 B96.81 Completed triple therapy. Reports improvemen t of GERD symptoms since completing treatment. Stool test confirmed eradicatio n. [id number] Indiana Lopez , [facility], [address] [place] [address] 02/02/2019 15:50:46 02/02/2019 17:23:42 Pain of shoulder region 80762241 M25.519 Subacromia l bursitis vs. biceps tendinitis . Will treat with naproxen 500mg BID with meals x 2 weeks. Pt advised to discontinu e with severe GI upset. Shoulder xray ordered. Referred to sports med. Advised rest and ice. Provided with Iranian language handout on home care instructio ns and exercises and advised practice at home as tolerated. Emergency precaution s reviewed. Follow up in 2 weeks or sooner as needed. Elevated blood-pressure reading without diagnosis of hypertension 269005545 R03.0 BP at 138/80, above goal of <130/<80. Will recheck at 2 week follow up visit. [id number] Ashish Maciel MD , [facility], [address] [place] [address] 04/02/2019 16:03:55 04/02/2019 16:46:57 Abdominal pain 87857457 R10.9 EBONY: 04/02/2019: Abdominal Pain is a differenti al that can have a variety of causes: Infectious , Viral, Food related I like to do a general workup through blood work to check for infectious processes. If symptoms continue we can do a sonogram to look for an anatomical issue. Pain seems to be more pelvic in nature, least concern for abdominal pain, pain that was described also was epigastric to we will trial omeprazole and seen all that works in 2 weeks. Pain in pelvis 89005220 R10.2 EBONY: 04/02/2019: Questionin g ovarian cyst, endometrio sis due to patient mentioning pain with intercours e as well as pain with urination as well as bowel movements despite being on oral contracept keara medication would like to order transvagin al ultrasound . Urine was negative for infection as well as urine . Did show blood. Will await blood work. Epigastric pain 71732952 R10.13 EBONY: 04/02/2019: ? GERD s/s, start Omeprazole as written below, discussed trigger to avoid: coffee, alcohol, tomato based foods, avoid eating late at night.Will consider EKG in two week visit. [id number] Ashish Maciel MD , [facility], [address] [place] [address] 06/22/2019 10:42:37 06/22/2019 11:20:11 Screening mammography 86180849 Z12.31 EBONY: 019: QM -DUE order sent. Pain of [facility] 26546612 M25.519 EBONY: 019:Pt. never followed up with Sports Med here. Will refer to outpatient [facility] to have EMG done to rule in or out if this is neuropathy induced by worsened shoulder. Pt. never used naproxen. Educated to take rx and use. [id number] Ashish Maciel MD , [facility], OFFICE [address] [place] [address] 09/16/2019 13:52:02 09/17/2019 09:53:21 Acute upper respiratory infection 67916518 J06.9 Educated patient that URI is a viral illness of the upper airways. It is not bacterial and does not benefit from antibiotic s. Average duration of URI is 7-10 days but in a recent trial, treatment at 7-10 days of illness with antibiotic s, intranasal steroids, or placebo did not alter natural history at 3 weeks. Recommende d symptomati c treatments including NSAIDS, semi-uprig ht sleep position, antihistam anish at HS, limited course of nasal sympathomi metics and/or cough syrups, and nasal saline rinses with soft squeeze bottle or Neti pot. Return for fevers > 101 for 3 days, worsening sinus pain, or failure to resolve in 2-4 weeks. Cough 12992861 R05 Tessalon Perles given for tx. Side effects discussed with pt. including that medication is sedating and will help with cough. [id number] Ashish Maciel MD , [facility], OFFICE [address] [place] [phone] 6 12/04/2019 13:29:34 12/04/2019 14:08:52 Breast lump [id number] N63.0 Refer to discussion section for complete summary of visit. [id number] Douglas Mendes MD , [facility], OFFICE [address] [place] [address] 6 04/11/2020 14:33:23 04/13/2020 12:06:54 Right lower quadrant pain [id number] R10.31 - pt with intermitte nt right lower/mid upper abdominal pains x3 weeks- will obtain US - in the interim trial daily PPI prior to breakfast- increase fluids and try to include more fiber in diet- call for fever/chil ls, persistent or worsening abd pain [id number] Douglas Mendes MD , [facility], [facility] [address] [place] [address] 06/16/2020 08:29:30 06/16/2020 08:59:02 Pain of left shoulder joint [id number] 9033504 M25.512 - persistent left sided radiating pains s/p fall 1 month ago, likely related to shoulder pathology with component of carpal tunnel given hx- low suspicion for fracture but reasonable to obtain imaging, will arrange to schedule- in the interim continue conservati ve measures: rest, ice/heat 20min on/off, alternate tylenol/ib uprofen for pain, gentle stretching exercises as tolerated- discussed PT pending normal xrays, she will call if wishing to pursue [id number] LU VIVEROS MD , [facility]ICE [address] [place] [address] 06/22/2021 10:29:37 06/27/2021 15:29:33 Elevated blood-pressure reading without diagnosis of hypertension 250273173 R03.0 Check BP at home once a day. Write down the numbers.Br ing BP machine if possible to next visit - with BP log.If still elevated above 135/85 next visit, poss start medication Pain in pelvis 50472181 R10.2 US (transabdo oc and transvagin al) recommende dif normal and pain persists, consider Rubber Calender Helper referral Pain of bi lateral hands 4687427750 2758143 M79.643 M25.649 r/o inflammato ry arthritis due to significan t AM stiffnessi f all normal ?workup for CTS Hypercholesterolemia 136 36499 E78.00 check labs prior to upcoming wellness visit. Low back pain 080350037 M54.50 discussed xray resultsRec ommend PT referral - declinedRe commend core strengthen ing exercises. 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 Advised do them every morning upon waking up. [id number] LU VIVEROS MD , [facility], OFFICE [address] [place] [phone] 6 07/05/2021 08:38:32 07/12/2021 11:28:47 Adult health examination 456324565 Z00.00 Counseling 004123500 Z71 .9 Depression screening 171 508274 Z13.31 depression screening tool administer ed, entered into emr, scored and discussed, time less than 7.5 minutes Screening for alcohol abuse 787749885 Z13.39 An audit alcohol screening test was performed and scored. Patient was asked about alcohol use, advised about risks of alcohol, and personal risk was assessed, patient agreed to plan and given informatio n about available resources if needed. Discussion including screening and scoring less than 7.5 minutes Mixed hyperlipidemia 267 611990 E78.2 cholestero l slightly high but low risk of cardiovasc ular disease 2.5% in next 10 years. no need for meds.check yearly Screening for disorder 610168812 Z11.59 Screening for malignant neoplasm of colon 151318067 Z12.11 Referral for a DIRECT booked colonoscop y. This patient is a healthy ASA Class 1 or 2 patient (only mild systemic disease), or a STABLE, well controlled insulin dependent diabetic. They do not have serious cardiac disease ie FL/angiopl asty within 1 year, symptomati c CHF; renal failure with CKD 4 or 5; take Coumadin, Plavix, Aggrenox, etc. Prediabetes 087874745 R7 3.03 check at least once a year. Subclinica l hyperthyroidism 142291243 E05.90 US and uptake scan in 2019 were unremarkab le (small nodule no need for followup per endo). Recheck labs. Pain of bi lateral hands [id number] 2928337 M79.643 M25.649 workup for CTS due to pain in hands jose a in AM and when doing fine work.davy p for arthritis was negative. [id number] LU VIVEROS MD , [facility], OFFICE [address] [place] [address] 6 07/12/2021 08:31:34 07/16/2021 16:04:55 Screening for malignant neoplasm of cervix 736785874 Z12.4 Routine gy necologic examination done 3968793193 9101 Z01.439 [id number] Morena Lord MD Sports Medicine, [address] [address] 10/11/2021 08:34:27 10/11/2021 09:31:33 Pain of wrist region 12276802 M25.531 M25.532 Marilee is a 50-year-ol d female with bilateral hand and wrist pain that I think is most likely due to carpal tunnel syndrome. Her symptoms are somewhat atypical describing some dorsal discomfort and stiffness of the hand. However x-ray imaging revealed no evidence of degenerati ve changes and recent testing for rheumatoid arthritis or autoimmune causes of her symptoms are relatively unremarkab le. Nerve conduction studies recently performed were also highly positive for median neuropathy . I reviewed all this with her and her daughter as well as discussing treatment. We discussed continued splinting, corticoste roid injections , and potential surgery. Due to her continued symptoms despite volar splint she did undergo a right wrist carpal tunnel corticoste roid injection under ultrasound guidance. She tolerated this well without complicati on. She will ice and rest over the next week and gradually resume normal activities . She will plan to follow me in 4-6 weeks for reevaluati on. I did advise continue to wear her volar splints at night until she is seen for reevaluati on. Median nerve cross sectional area was 16 mm2 at the carpal tunnel inlet Carpal wu rita syndrome 57080598 G56.01 G56.02 [id number] Indiana Lopez , [facility]ICE [address] [place] [address] 01/02/2022 14:26:46 01/02/2022 15:06:56 Active or passive immunization 094470614 Z23 shingles, reminded Screening for malignant neoplasm of colon 782328083 Z12.11 Referral for a [employer] booked colonoscop y. This patient is a healthy ASA Class 1 or 2 patient (only mild systemic disease), or a STABLE, well controlled insulin dependent diabetic. They do not have serious cardiac disease ie FL/angiopl asty within 1 year, symptomati c CHF; renal failure with CKD 4 or 5; take Coumadin, Plavix, Aggrenox, etc. Subclinica l hyperthyroidism 832986514 E05.90 - TSH low with normal T3, T4, will re-check- thyroid exam normal Fatigue 13670789 R53.83 - for a few months, will check labs and recheck thyroid function Neck pain 47735246 M54.2 - no swollen glands or tenderness - pain radiates into left shoulder and much more consistent with neck/MSK pain- recommend stretching , heat/ice, and can consider physical therapy- call with any worsening symptoms Lichen sclerosus 6926543 01 L90.0 - will trial triamcinol one cream twice daily for 7-14 days- avoid scratching the area [id number] Ashish Maciel MD , [facility]ICE [address] [place] [address] 01/31/2022 10:29:30 01/31/2022 11:17:21 Menopausal syndrome 763387526 N95.9 Discussed with patient that she is likely experienci ng menopause with her amenorrhea and hot flashes. Discussed that if truly in menopause she can come off of the control pill. discussed staying on until at least the 6 mo alejandro of amenorrhea , dx can be confirmed at the 12 mo alejandro. Discussed that LH and FSH would likely be fluctuatin g and are not needed to make the dx. Advised symptom management Tension-type headache 39 7008853 G44.209 Likely related to eye strain and reading small printAdvis ed she check the prescripti on readers she is using and potentiall y try a stronger prescripti onCan also see an eye doctor if persisting Advised tylenol/ib uprofen as needed for pain and resting her eyesAdvise d of migraine like sx and return precaution s Subclinica l hyperthyroidism 659339837 E05.90 Pt has chronicall y low TSH with normal T3 and T4. She was seen by Dr. Gage before for a potential thyroid nodule. She has never had sx related to hyperthyro idism. Check labs q 3 months, or sooner if sx develop Screening for osteoporosis 152529815 Z13.820 with her hx of sublicinal hyperthyro id as well as current likely menopausal state the patient is at increased risk for bone loss. Spoke with PI and in reviewing Dr. Gage's note from 2019, reasonable to check for any bone loss. Constipation 55652458 K5 9.00 Discussed nausea with eating is likely secondary to constipati onAdvised proper hydration and exerciseAd vised high fiber foodsAdvis ed prune juice if constipate dAdvised smaller portions at meals to avoid becoming overly full and nauseous Bilateral lower leg edema 477910297 R60.0 Only affects feet, no redness or warmth. No clinical concern DVT. Only happens occasional ly. Advised elevation, proper hydration. Advised compressio n stockings if will be on feet all day. Advised to continue with foot soaks if providing relief. Advised of return precaution s. [id number] Ashish Maciel MD , [facility], OFFICE [address] [place] [phone] 6 03/08/2022 09:58:45 03/08/2022 10:29:39 Screening for malignant neoplasm of colon 591782259 Z12.11 03/08/22 Has appt 04/09/22, gb Subclinica l hyperthyroidism 497297983 E05.90 -stable TSH with normal T3-has upcoming lab appt for recheck in 04/2022-f/ u in 4 months for wellness visit [id number] Yordy Cornelius MD [facility], [address] [address] 04/09/2022 08:11:39 04/09/2022 13:10:13 [id number] Indiana Lopez , [facility], OFFICE [address] [place] [phone] 6 04/26/2022 09:04:56 04/30/2022 13:26:25 Active or passive immunization 592033077 Z23 pt. received [facility]les vaccine [facility] n. Pain of left breast 1010 864007 N64.4 Will get diagnostic mammo and u/sPrior done 12/16/19, it appears pt may have been having L breast pain at that time as well, no abnormalit y noted on u/s at that time Seasonal allergy 0773374 04 J30.2 Restart Flonase [id number] Ashish Maciel MD , [facility], OFFICE [address] [place] [phone] 6 05/30/2022 09:48:08 05/30/2022 10:29:34 Active or passive immunization 233564844 Z23 shingles- reminded Hyperlipidemia 85588211 E78.5 -LDL, and triglyceri edgard remain elevated-d iscussed dietary changes- CVD risk is 3.3%-reche ck lipid panel in 3 months Prediabetes 296711747 R7 3.03 -last A1c 6.2-again reviewed diet and exercise changes-re check A1c Pruritic disorder 165916 002 L29.9 -start hydorcorti sone topical cream Subclinica l hyperthyroidism 476342439 E05.90 -stable, continue to monitor Elevated blood-pressure reading without diagnosis of hypertension 188048672 R03.0 -left before BP could be rechecked, will have her come back in for BP check [id number] Ashish Maciel MD , [facility] [address] [place] [address] 08/08/2022 09:39:42 08/10/2022 08:28:19 Adult health examination 025154516 Z00.00 -well 51 y/o F-vital signs stable-UTD on vaccines-p ap completed today-retu rn in 6 months for MM Counseling 053912202 Z71 .9 including cardiovasc ular risk reduction counseling Depression screening 171 323574 Z13.31 depression screening tool administer ed, entered into emr, scored and discussed, time greater than 7.5 minutes Screening for alcohol abuse 193811455 Z13.39 audit score 0 Screening for malignant neoplasm of cervix 468123852 Z12.4 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 Pruritus of vagina 86013 003 L29.3 Suspect a contact derm, itch scratch cycle, encourage to stop itchingIf itching persist consider atrophic vaginistis , trial or premarin. Irregular periods 739396 07 N92.6 Almost 1 year without a period, ? if done. On OCP- Would like to know if she can stop. Check FSH. [id number] Ashish Maciel MD , [facility], OFFICE [address] [place] [phone] 6 01/23/2023 10:31:08 01/24/2023 09:54:53 Active or passive immunization 537136825 Z23 Declines flu vaccine Left flank pain 35555520 9 R10.9 POC with blood, will send for micro and US for possible stonept also with nauseaadvi sed to push fluids, and follow up as needed for new or worsening Low back pain 858581673 M54.50 centered on left side, as above discussed possible kidney stone given CVA tenderness and blood in urine. Discussed msk causes of low back pain as well, however exam reassuring . Discussed possible hip arthritis as compressio n testing negative, can consider x ray if pain persists. Follow up for continued sx or lack of resolution . Macule of skin 287913929 R23.8 benign features, non concerning one exam. Advised of return precaution s Pruritic rash 71442377 L 28.2 The cause of your itchy rash is unclear. It does not appear to be an infection or bug bite. It is more likely an allergy of some type or eczema.Olman id heat, use cool compresses , take an antihistam ine over-the-c ounter such as Zyrtec once daily or Benadryl (though Benadryl can make you drowsy).Us e steroid cream as directed, do not use on broken skinReach out if your symptoms worsen or do not improve. [id number] Ashish Maciel MD , [facility], OFFICE [address] [place] [phone] 6 02/01/2023 10:33:33 02/04/2023 09:00:44 Microscopic hematuria 987685650 R31.29 Low back strain 92258223 1 S39.012A [id number] Herbert Schaefer MD , [facility], OFFICE [address] [place] [address] 6 05/15/2023 09:00:24 05/16/2023 13:54:15 Active or passive immunization 857521488 Z23 Flu: [place] injury 333309843 S8 9.90XA [id number] Douglas Mendes MD , [facility], OFFICE [address] [place] [address] 06/27/2023 09:31:58 06/27/2023 10:15:53 Snoring 99426428 R06.83 ? AAN- refer to sleep medication Solitary n odule of lung 053050072 R91.1 Reviewed, follow up imaging ordered Steatotic liver disease 740990648 K76.[address], will monitor Chest pain 34977616 R07. 9 Normal EKG, reassuring . Suspected this is more muscular, worsens with movement. Can consider physical therapy. If worsening needs re-evaluat ion. Pain of le ft shoulder joint 6498170135 9844776 M25.512 Refer to PT, EKG normal, on history related to motion. [id number] Lucretia Chi, PT Physical Therapy, [address] [address] 08/26/2023 14:20:06 08/26/2023 15:38:29 Pain of left knee joint 9759829944 58949 M25.562 Patient is a 52-year old female who presents to physical therapy with complaint of left knee pain which is not changing. Physical examinatio n revealed mildly decreased left hamstring length, mild TTP of the left hamstrings near insertion, and hypertonic ity and mild TTP of the left gastroc/so leus. Suspect left hamstring tendinopat hy. Patient has mild functional limitation in their ADLs and work capacity. Primary limitation s include: standing after sitting > 20 minutes, ascending stairs, squatting. Skilled physical therapy is indicated to safely and progressiv enoch address impairment s and functional limitation s as outlined below. Patient is a good candidate for physical therapy due to active lifestyle, previous success with physical therapy interventi on, a good support system, and motivation to actively participat e in their plan of care. Short Term Goals:In 4 weeks, patient will:1. Stand after sitting for 30 minutes without left knee pain.2. Perform squat to 60 degrees of knee flexion with left knee pain no greater than 3/10. Furnace Caretaker Goals:In 8 weeks, patient will:1. Demonstrat e pain free active, passive, and resisted motions of the left LE.2. Ascend a full flight of stairs without left knee pain.3. Demonstrat e independen ce with comprehens keara HEP. Treatment Plan: Patient to return for 1x every 1-2 weeks over 10 weeks for a total of 6 visits. We expect significan t change in pain, impairment and function in this time frame. Treatment to Include: Continuing assessment , neuromuscu lar re-educati on, therapeuti c exercise, patient education, HEP (initiated ), manual therapy PRN, modalities PRN, taping PRN. [id number] Ashish Maciel MD , [facility], [facility]ICE [address] [place] [phone] 09/19/2023 10:07:11 09/20/2023 09:59:11 Upper respiratory infection 82969530 J06.9 Patient presents with symptoms consistent with viral infection. No evidence of pneumonia on exam. Discussed supportive care: pushing fluids, rest, nasal saline and Mucinex as needed. Encouraged to follow up if symptoms persist for more then 10 days or if they are worsening. Discussed natural course of viral illnesses and lack of evidence for treating with antibiotic s. Pain of le ft knee joint 4247763312 38418 M25.375 [id number] Ashish Maciel MD , [facility], [facility]ICE [address] [place] [phone] 6 10/11/2023 08:26:45 10/11/2023 09:18:48 Active or passive immunization 128013181 Z23 shingles- reminded to contact pharmacy Pain of le ft knee joint 1691512405 31610 M25.562 -suspect degenerati ve changes-wi ll obtain x-ray to further assess-f/u based on results, likely will recommend starting PT Elevated blood-pressure reading without diagnosis of hypertension 918475577 R03.0 -elevated x 3 with some improvemen t after sitting through appt-BP has been intermitte ntly elevated in the past-will return for nurse BP check within 2 weeks [id number] ANTONY OLIVARES , [facility], OFFICE [address] [place] [phone] 6 10/18/2023 13:54:49 10/21/2023 07:58:26 Active or passive immunization 657861276 Z23 shingles: discussed, at pharmacy 10/18/23 SD Benign ess ential hypertension 7825717 I10 Elevated today. Had a normal blood pressure 110s/80s in early September, but then elevated at last visit. Elevated today, headaches, family concerned. Will start a low dose losartan and f/u in 2 weeks for repeat. Has cuff at home. Advised she call with any dizziness or hypotensio n. Prediabetes 761773009 R7 3.03 Last A1c 6.3%, will repeat Nodule of lung 485649444 R91.1 CT abdomen from fall 2022 showed a left lower lobe nodule, patient's mother of breast cancer so will order repeat for her. Pain of ri ght knee joint 2197790227 84111 M25.561 Seen recently and had x-ray done which showed some chondrocal cinosis and spurring on the patella. Gave her the results and advised she follow up with the ordering provider - has an appt on 11/05. [id number] Ashish Maciel MD , [facility], [facility] [address] [place] [address] 11/06/2023 10:04:37 11/07/2023 09:22:19 Adult health examination 034698599 Z00.00 -well 52 y/o F-vital signs stable-UTD on vaccines Depression screening 171 109675 Z13.31 depression screening tool administer ed Screening for alcohol abuse 352574816 Z13.39 Alcohol use screening tool administer ed Active or passive immunization 767394272 Z23 shingles- reminded to contact pharmacy Pain of le ft knee joint 4165436575 85841 M25.562 -reviewed results from recent x-ray-disc ussed sports medicine referral vs PT, she declines both at this time-will focus on home exercises for now Alkaline p hosphatase above reference range 337220546 R74.8 -elevated alk phos, will recheck hepatic function + GGT to determine if liver specific Screening mammography 24 872341 Z12.31 Hyperglyce joe due to type 2 diabetes mellitus 3765613774 83776 E11.65 You have been prescribed a new medication called Trulicity. It is a once weekly injection which has been shown to reduce blood sugars effectivel y, allow some weight loss in most patients, and reduce cardiovasc ular risk in patients with heart disease. - Start by using the 0.75mg dose pen weekly for four weeks. This is often just a starting dose to get used to the medication , and most patients will need to increase the dose to lower blood sugars to goal.- Try to take the medication on the same day each week, but you can change the day of the dose as long as it has been at least three days since your last dose.- If you miss a dose, take the missed dose as soon as possible within 4 days of the due date. If it has been more than four days, skip the missed dose and take your next dose on schedule in three days. Do not take two doses of Trulicity within three days of each other.- If not at goal in four weeks, your provider will increase the dose to 1.5mg weekly. This will be a new prescripti on in a separate pen. Injection: - Store the pens you are not using in the refrigerat or. On the day of your injection, take one pen out to allow the medication to come to room temperatur e. EACH PEN HAS ONE DOSE.- You can inject the medication in either the abdominal fat, upper arm or the outer thigh. Wipe the area you choose with an alcohol wipe before injection. Rotate the injection site each week.- Remove the cap from the pen. The needle is already in the pen. You can put the cap in your regular trash.- Twist the top of the pen to the green unlock setting.- Angle the pen to 90 degrees from the injection site, hold tightly against the skin and press the medication release button. You will hear a loud click, and then a second softer click in another 5-10 seconds. Hold pressure this entire time.- Place the entire pen into a certified sharps container. You can receive sharps containers from your insurance company or most [facility] have them available for free. Side effects/Co ntraindica tions:- Common initial side effects are abdominal upset with nausea, diarrhea, or constipati on, and indigestio n. These often improve with each injection as your body adjusts to the medication . Eat small meals, stick to bland foods, and avoid greasy or sweet foods while the symptoms last. If the symptoms are severe or not improving, contact your provider.- Please tell your provider if you or a family member have a history of medullary thyroid cancer, MEN2, or if you have a history of diabetic retinopath y, gastropare sis or pancreatit is.- Trulicity is not for use in children under 18, or in . -f/u in 1 month + labs Hyperlipidemia 14414487 E78.5 -reviewed recent lipid panel-will start atorvastat in, proper use of medication s, side effects, monitoring and expectatio ns were discussed with the patient-re check lipid panel in 1 month [id number] Ashish Maciel MD , [facility], OFFICE [address] [place] [phone] 12/04/2023 09:23:51 12/04/2023 10:05:58 Active or passive immunization 839920687 Z23 shingles- reminded to contact pharmacy Hyperglyce joe due to type 2 diabetes mellitus [id number] 48599 E11.65 -A1c down 6.7-->6.4 since starting trulicity- will increase trulicity to 1.5 mg for maintenanc e dosing, just picked up another month supply of 0.75 mg so this will start next month-foot exam normal today-reti nal eye exam today-f/u + labs in 3 months Hyperlipidemia 84205403 E78.5 -significa nt improvemen t in lipids in the past month!-con tinue atorvastat in 20 mg Essential hypertension 34247731 I10 -at goal, continue losartan 25 mg Alkaline p hosphatase above reference range 825921041 R74.8 -remains elevated, GGT negative-w ill continue work up with additional labs as below-TSH last year was low, never followed up, may be related, checking again [id number] Ashish Maciel MD FP, [facility], OFFICE [address] [place] [phone] 12/04/2023 10:06:27 12/04/2023 10:40:35 Prediabetes 101757201 R73.03 [id number] Ashish Maciel MD , [facility] [address] [place] [address] 02/05/2024 14:27:30 02/05/2024 17:04:23 Abdominal pain 03772611 R10.9 -given point RLQ tenderness , appendix u/s obtained, on wet read no appendix visualized , clinical suspicion for appendicit is low-suspec t gastroente ritis, recommend bland diet, plenty of fluids + electrolyt es-return to care if worsening or if not resolving after 7 days Type 2 zia betes mellitus 96809000 E11.9 -diabetes has been well controlled with trulicity- no recent home BG readings-P OC BG 105 Diarrhea 92662476 R19.7 same plan as above [id number] Douglas Mendes MD FP, [facility], OFFICE [address] [place] [id number] 03/03/2024 10:02:02 03/03/2024 13:33:58 Dysuria [id number] R30.0 Patient with urinary symptoms.W ill send urine for culture, UA showed 2+ blood, 1+ leukocytes and trace proteinShe prefers to start treatment while waiting on cultureNo symptoms of pyelonephr itis. No CVA tenderness .Discussed supportive and preventive measures, such as drinking lots of watertreat with macrobidPa tient instructed to follow up if not better or with new symptoms. Pain of le ft knee joint [id number] 56229 M25.562 xray reviewed which showed chondrocal cinosis and patellar spurring in 03/24has tried PT which wasn't helpful, patient defers repeat course at this timeintere sted in seeing Dr. Lord, referral placedcont inue OTC carecall as needed [id number] Ashish Maciel MD FP, [facility], OFFICE [address] [place] [address] 05/01/2024 08:23:39 05/01/2024 09:42:55 Active or passive immunization [id number] Z23 shingles- reminded to contact pharmacyFl u: Declines for today 05/01/24 SD Prediabetes [id number] R7 3.03 Pain of le ft knee joint [id number] 43349 M25.562 -has been well managed with cortisone injections -fell last night and twisted the knee, x-ray not indicated at this time-advis ed rest and ice and return to care if not improving Hyperlipidemia 79336936 E78.5 -significa nt improvemen t in lipids in the past month!-con tinue atorvastat in 20 mg Essential hypertension 83418558 I10 -at goal, continue losartan 25 mg Type 2 zia betes mellitus 85001021 E11.9 -diabetes has been well controlled with trulicity- no recent home BG readings-n eeds meter for home checks [id number] Morena Lord MD Sports Medicine, [facility] [address] [place] [address] 04/29/2024 09:03:56 05/01/2024 09:12:22 Pain of left knee joint [id number] 85121 M25.562 Marilee is a 53-year-ol d female with left knee pain as well as a considerab le effusion that I feel is likely related to pseudogout or her underlying osteoarthr itis. I discussed with her and her knee effusions as well as the potential for pseudogout or other inflammato ry causes of her symptoms. We discussed options for treatment including physical therapy, oral medication s, corticoste roid injections as well as the potential for surgery. Due to the degree of swelling the decision was made to perform a left knee joint aspiration and corticoste roid injection under ultrasound guidance. I will send the fluid for cell count differenti al as well as Lyme PCR testing. She will ice and rest over the next week and gradually resume normal activities . I have advised that she follow up with me in 6 weeks if her symptoms have not improved. [id number] Guille Card MD , [facility], OFFICE [address] [place] [address] 05/21/2024 15:27:58 05/21/2024 16:44:04 Chest pain 07033517 R07.9 Pain started two days ago, radiating from back to front, exacerbate d by deep breathing and movement. No associated trauma, exercise, palpitatio ns, nausea, vomitng or cough. EKG normal. Suspected musculoske letal etiology. -Order chest x-ray to rule out other causes. -Prescribe Naproxen for pain relief, to be taken with food for 10 days. Carpal wu rita syndrome [id number] G56.01 Bilateral hand pain, worse with use and at night. Positive Phalen's test. RUE more prominent than LUE. Prior surgery on right hand with temporary relief. -Recommend use of wrist brace. -Limit repeatitiv e activities and take frequent breaks while performing repeatitiv e activities . -Order x-ray of bilat hands to assess bone structure. -NSAID w/ food for symptomati c relief. Consider steroid injection of affected area if PO regimen ineffectiv e. -Order labs to rule out possible rheumatic cause -Refer to hand specialist for further evaluation . Pleurisy 629073710 R09.1 Pain started two days ago, radiating from back to front, exacerbate d by deep breathing and movement. No associated trauma, sick contacts, fevers, exercise, palpitatio ns, or cough. EKG normal. Suspected musculoske letal vs pleuritic or rheum etiology. -Order chest x-ray to rule out other causes. -Prescribe Naproxen for pain relief, to be taken with food for 10 days. -Order labs to rule out rheumatic cause for patients symptoms [id number] Morena Lord MD Sports Medicine, [address] [address] 07/14/2024 08:21:04 07/17/2024 16:21:53 Pain of left knee joint [id number] 17830 M25.562 Marilee is a 53-year-ol d female with left knee pain that unfortunat enoch has been present despite over 8 weeks of physical therapy as well as a recent corticoste roid injection. Recent synovial analysis was reassuring without evidence of an inflammato ry arthropath y or active pseudogout . With her ongoing symptoms and relatively normal x-rays I have advised an MRI of the left knee to evaluate for more significan t osteoarthr itis versus a meniscal tear requiring surgical interventi on. For pain control and provided her with a prescripti on for meloxicam which she will take once daily for the next week and then once daily as needed. She was previously on naproxen but did not feel this worked well for her. She will plan to follow-up with me after her MRI for reevaluati on. Osteoarthr itis of knee [id number] M17.12 [id number] Morena Lord MD Sports Medicine, [facility] [address] [place] [address] 08/11/2024 10:30:52 08/15/2024 14:41:30 Pain of left knee joint [id number] 11514 M25.562 Marilee is a 53-year-ol d female with left knee pain due to degenerati ve changes seen on her recent MRI. This is significan tly worse than what was visualized on her previous x-rays. I discussed knee osteoarthr itis as well as meniscal tears with her and her as well as treatment in her age group. We discussed continued home physical therapy exercises and use of NSAIDs, further corticoste roid injections , considerat ion of Viscosuppl ementation , as well as potential surgery. Overall her symptoms are relatively well controlled at this point and she would like to continue with conservati ve management which I believe would be appropriat e. I encouraged her to continue with her home physical therapy exercises and stay as active as possible. I am of course happy to see her back as needed if she has worsening symptoms in the future. Osteoarthr itis of knee 504465456 M17.12 [id number] Morena Lord MD Sports Medicine, [address] [address] 10/28/2024 12:44:23 10/28/2024 16:20:53 Pain of left knee joint [id number] 62894 M25.562 Marilee is a 53-year-ol d female with left knee pain due to underlying osteoarthr itis as seen on her previous MRI. I reviewed this diagnosis with her and her daughter who was present and assisting with translatio n. We discussed further treatment including continued physical therapy, the use of oral medication s, further corticoste roid injections , and surgery. Due to her pain the decision was made to perform a left knee joint corticoste roid injection under ultrasound guidance. She tolerated this well. She will ice and rest over the next week and gradually to normal activities . I have advised him if we can monitoring of her blood sugars and she will call for any elevated numbers. I am happy to see her back as needed if she has worsening symptoms in the future. Osteoarthr itis of knee [id number] M17.12 [id number] Douglas Mendes MD , [facility], OFFICE [address] [place] [address] 11/25/2024 15:41:59 11/25/2024 17:11:24 Osteoarthritis of left knee joint [id number] 49777 M17.12 meniscal injury. and OA L knee - has had 2 corticoste roid injections . S/P MRI [facility] 07/2024. Will rec: topical voltaren and ortho referral. Health Concerns Section Related Observation LastModified by Organization Detai ls LastModified Time None Recorded Concern Status LastModified by Organization Details LastModified Time None Recorded Advance Directives Directive None Recorded Payers Insurance Date Sequence Insurance Name Policy Number Policy Blackmon Covered Member ID Blackmon Member ID Guarantor Name 02/01/2025 1 [facility] - DOS ON OR AFTER 2022 - [facility] (MEDICAID REPLACEMENT - HMO) Marilee Castillo [id number] Marilee Castillo 02/05/2024 1 [place] Marilee Castillo [id number] Marilee Castillo 02/05/2024 1 [place] [facility] Marilee Castillo [id number] Marilee Castillo 02/05/2024 1 [place] [facility] Marilee Middleton [id number] Marilee Castillo 02/05/2024 1 [facility] NET PLAN (MEDICAID HMO) Marilee Castillo [id number] Marilee Castillo 02/05/2024 2 [place] Marilee Castillo [id number] Marilee Castillo 02/05/2024 1 [facility] NET PLAN (MEDICAID HMO) [id number] Marileeeusebio Floriana [id number] Marilee Castillo 02/05/2024 1 [place] PRIOR TO 2022 - [facility] (MEDICAID) Marilee Castillo [id number] Marilee Castillo 02/05/2024 1 [facility]AR[facility] (O) [id number] Marilee Castillo [id number] Marilee Castillo 02/05/2024 1 [facility] (O) [id number] Marilee Castillo [id number] Marilee Castillo Notes Date Note Type Note Provider Name and Address Organization Details Recorded Time 05/21/2024 text/html 53 year old andrew ent with a history of carpal tunnel syndrome, presents with bilateral hand pain and chest pain. The chest pain started two days ago and is described as radiating from the back to the front. The pain intensifies with movement and deep breathing. The hand pain is bilateral and worsens with use. She reports morning stiffness and swelling in the middle finger of the right hand. Symptoms are alleviated as she carries on with her activities of daily living and through massage of the affected digit. She had surgery for carpal tunnel syndrome on the right hand last year, which initially relieved the symptoms, but they have since returned. She also reports difficulty sleeping due to the hand pain. Pt has had weightbearing X-rays of the left knee were independently interpreted demonstrating mild OA and chondrocalcinosis. She recently rec'd steroid injection of the L knee w/ [facility] on 04/29 which she finds to be helpful. Guille Card MD [address] [place] [address], [phone], [facility] 05/21/2024 17:25:17 07/14/2024 text/html Marilee is a 53-yea r-old female who presents today for reevaluation of chronic uncontrolled left knee pain in the company of her who is assisting with interpretation. She was last evaluated on April 292023 when she underwent a left knee joint corticosteroid injection. They state unfortunately this produced only 1 week of symptom relief. Since then she has had return of swelling as well as diffuse discomfort. The pain continues to be acutely worse when going up and down stairs and she feels some clicking and mechanical symptoms occasionally. She did do physical therapy earlier this year and has been doing a physical therapy exercise program at the gym. She has never had any previous left knee surgery. Morena Lord MD [address] [place] [address], [phone], [facility] 07/14/2024 09:33:17 08/11/2024 text/html Mairlee is a 53-yea r-old female who presents today for reevaluation of left knee pain in the company of her who is assisting with translation. She was last evaluated on July 142023. Since then overall her left knee has been feeling better and she is having less discomfort. She does continue to have some swelling and pain on stairs as well as when standing for longer periods of time but states it is much better controlled. She did take a short course of meloxicam which was helpful and currently only uses occasional Advil for discomfort. She does not report any significant mechanical locking or instability episodes. She did have an MRI done since her last evaluation. Morena Lord MD [address] [place] [address], [phone], [facility] 08/11/2024 10:57:44 10/28/2024 text/html Marilee is a 53-yea r-old female who presents today for reevaluation of left knee pain. She was last evaluated for her left knee in July 2024 and previously had a corticosteroid injection in April 2024. She states since her last evaluation she has had worsening discomfort. She describes pain mostly along the medial but also anterior knee that is worse on stairs. She states the knee at times feels swollen and she feels catching symptoms. She denies any new injuries. She denies any mechanical locking or instability episodes. Morena Lord MD [address] [place] [address], [phone], [facility] 10/28/2024 13:36:07 11/25/2024 text/html C/O persistent L knee pain since 04/2024. Has had 2 knee injections. last one 10/2024. last few days more pain and swelling . States had treid PT MRI L Knee 07/24/24.1) Mild to moderate tricompartmental degenerative change.2. Degeneration in the medial meniscus with superimposed tear alongthe inferior articular surface in the body.3. Free margin fraying in the lateral meniscal body.. Douglas Mendes MD [address] [place] [address], [phone], [facility] 11/25/2024 16:32:20 OBGyn Episode Ob Episode Information Episode Created Date Number of Fetuses Patient Bloodtype Patient rh Status Prepregnancy Weight lbs Domestic Partner Domestic Partner Phone Father Name Auditing Specialist Status 01/26/20 10 1 CLOSED Fetus Data First Name Last Name Admitted to NICU Weight (g) Sex Living Outcome Pediatric Complications Fetus ID Race Codes Race Delivery Type [phone] 6 F Full Term 276 Rancho Calculation Initial Rancho Date Initial Exam Date Initial Exam Provider Initial Ultrasound Date Last Menstrual Period Date Ultra Sound Weeks Gestation 0 Eighteen To Twenty Week Rancho Update Ultra Sound Date Fundal Height At Umbil Quickening Date Ultra Sound Latest Weeks Gestation Final Rancho Confirmed By Final Rancho Confirmed Date Final Rancho Date Ultra Sound Latest Days Gestation 0 0 Menstrual History Last Menstrual Date Menses Monthly On Bcp Conception Prior Menses Frequency Hcg Plus Date Menarche Onset Age Delivery Information Delivery Date Delivery Type Labor Anesthesia Weeks Gestation Incision Type Labor Labor Length Hrs Delivered By Post Complications Tubal Sterilization Discharge Date Comments 0 Regional-Ep idural Discharge Information Feeding Method Contraceptive Method Maternal HG B and HCT Levels
== END 2025-02-01 08:12 | disposition home or self-care (01) ==
LOC: HO.HOSX 08:11
PROVIDERS: Visit Provider Physician Assistant
DX: M17.12 Unilateral primary osteoarthritis, left knee (principal); M25.562 Pain in left knee; E11.9 Type 2 diabetes mellitus without complications
CPT/HCPCS: 73562

== ENCOUNTER 2025-02-01 14:04 | Outpatient (AMB) | payer OTHER, SELFPAY ==
--- NOTE | 2025-02-01 14:24 | MHC.OFFVIS ---
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 No history of a fall. Patient reports ongoing pain since 04/2024. Hx of 2 injections, last inj 10/2024. Patient states that her last injection was in [facility] [place] [facility] in [facility]. She mentions that her pain is on the medial and lateral aspect of her left knee. She mentions that her pain is worse with walking, sitting and standing. 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 No history of a fall. Patient reports ongoing pain since 04/2024. Hx of 2 injections, last inj 10/2024. Patient states that her last injection was in [facility] in [facility]. She mentions that her pain is on the medial aspect of her left knee. She mentions that her pain is worse with walking, sitting and standing. 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 She has pain all the time and she limps and she feels that she is not sleeping well and she is exacerbated with how much pain this caused her throughout her daily life. She is here today with her . She feels the injections been underwhelming. She has hypertension and well-controlled diabetes. She takes Trulicity. [facility] Social History (Updated 02/01/25 @ 14:30 by Mg Bull) Alcohol intake: never Patient Tobacco Use Status: Never used Tobacco Current occupational status: unemployed Physical Exam Vital Signs: BMI result Body Mass Index 33.1 Const General: cooperative, healthy appearing, no acute distress, well developed and alert HEENT Head: Yes normal to inspection, Yes normocephalic and Yes atraumatic Mouth: moist mucous membranes Eyes General: appearance normal, both eyes and all related structures EOM: EOMs intact bilaterally Chest Other: no audible wheezing. Resp Other: No audible wheezing Effort & Inspection: normal respiratory effort Cardio Other: Radial pulse palpable with no rythmic abnormalities Back/Spine/Pelvis Cervical Spine: normal cervical lordosis Skin General skin exam: no rashes or lesions noted Neuro General: no focal motor deficits Extrem Other: On exam she has a antalgic gait. She has full range of motion of the left knee with sharp tenderness to palpation over the medial compartment. Psych Appearance: grossly normal and well kempt Mental Status: mental status grossly normal Speech and movement: Normal speech and movement present Affect: normal affect Attitude: cooperative Results Reviewed Results Reviewed: I personally reviewed relevant radiographs. There is moderate osteoarthritis of the medial compartment of the left knee with joint space narrowing and osteophyte formation. Assessment & Plan Assessment & Plan (1) Osteoarthritis of left knee: Code(s): M17.12 - Unilateral primary osteoarthritis, left knee Category: Medical Plan: This is a 54-year-old woman who is active and disabled because of her left knee osteoarthritis. She works but is in pain throughout the entirety of the day. She is on her feet working in a restaurant and is very frustrated because she feels that quality of her life is diminished and she is having a difficult time managing. Radiographs show moderate medial compartment osteoarthritis. Her pain localizes to the medial compartment and we discussed treatment options. An unloading brace may be beneficial but she is opposed to having to wear a large brace. The injections that she has had in the past have not been helpful. I do not think physical therapy would be beneficial for her as she is active and healthy and maintaining her diabetes with medication and lifestyle. I think she would benefit from a unicompartmental arthroplasty. This is excellent surgery for this problem and can give her 10-15 years of pain-free living. I discussed the the surgery in detail. I explained the risks, benefits and alternatives including but not limited to the risk of pain, infection, stiffness, aseptic loosening and need for further surgery as well as potential medical complications such as blood clots, pulmonary embolism and cardiac complications. She expressed understanding and I will proceed forward with preoperative clearance and surgical planning. I answered her questions to the best of my abilities. Orders: Orders MR knee LT wo con 02/01/25 M17.12 - Unilateral primary osteoarthritis, left knee XR knee LT 3V 02/01/25 M25.569 - Pain in unspecified knee Coding Level of Care Code New Pt Level 4 (77366) Diagnoses Osteoarthritis of left knee M17.12
[2025-02-01 14:31] VITALS: BMI 33.1
== END 2025-02-01 16:02 | disposition home or self-care (01) ==
LOC: HO.HOS 14:05
PROVIDERS: PCP Family Medicine; Visit Provider Physician Assistant
DX: M17.12 Unilateral primary osteoarthritis, left knee (principal)
CPT/HCPCS: 99204

== ENCOUNTER → 2025-02-01 14:06 | Outpatient (BNV) | payer OTHER, SELFPAY | PROVIDERS: Visit Provider Radiology Diagnostic Radiology | DX: M17.12 Unilateral primary osteoarthritis, left knee (principal) | CPT/HCPCS: 73562 ==

== ENCOUNTER → 2025-02-15 07:15 | Outpatient (BNV) | payer OTHER, SELFPAY | PROVIDERS: PCP Family Medicine; Visit Provider Radiology Diagnostic Radiology | DX: S83.242A Other tear of medial meniscus, current injury, left knee, initial encounter (principal); S83.282A Other tear of lateral meniscus, current injury, left knee, initial encounter | CPT/HCPCS: 73721 ==

== ENCOUNTER 2025-02-15 07:21 | Outpatient (REF) | payer OTHER, SELFPAY ==
--- NOTE | ~2025-02-15 | MR_ITS ---
CLINICAL HISTORY: TIBIAL PLATEAU FRACTURE, LEFT. GENTLE ROM, NWB LLE MR left knee without gadolinium Comparison: DX/SR - XR KNEE 3 VIEWS LEFT - 02/01/25 14:06 EDT Findings: No fractures. No pathologic bone lesions. There is moderate subchondral degenerative marrow edema within the mid weight-bearing aspect of the medial tibial plateau. Mild tricompartmental periarticular osteophyte formation. Severe articular cartilage loss overlying the weight-bearing aspects of the medial femoral condyle and medial tibial plateau. Mild articular cartilage loss overlying the weight-bearing aspects of the lateral femoral condyle and lateral tibial plateau. Focal region of high-grade articular cartilage loss overlying the patellar apex measuring 7 mm transverse. Moderate knee joint effusion. Small ganglion cyst along the popliteus. Anterior and posterior cruciate ligaments are intact. Collateral ligaments are intact. Patellar retinacula and iliotibial band are intact. No tears of the quadriceps, patellar, popliteus, or flexor tendons. Medial extrusion of the medial meniscus. There is vertically oriented linear high T2 signal intensity traverses the peripheral 3rd of the medial meniscal body demonstrating inferior articular surface extension, indicating vertical tearing. Linear horizontal high T2 signal intensity traverses the inner, middle, and peripheral thirds of the anterior and posterior horns medial meniscus, demonstrating superior articular surface extension, indicating horizontal tearing. Linear horizontal high T2 signal intensity traverses the inner, middle, and peripheral thirds of the lateral meniscal body, demonstrating inferior articular surface extension, indicating horizontal tearing. IMPRESSION: 1. Medial and lateral meniscal tearing. 2. Tricompartmental osteoarthritis with associated articular cartilage loss. 3. Knee joint effusion. This document has been electronically signed by: Christiano Fagan MD on 02/15/2025 16:00:55
--- OUTSIDE RECORDS SUMMARY | 2025-02-15 07:25 | XMS_ITS | Clinical Summary ---
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 PAP SMEAR [...] 59, 66, 68) Note: Testing performed by [employer] HR-HPV analysis. Clinical correlation is advised. This HPV test was performed at [facility], [address] [place] [address]. This test has been FDA approved for [employer] cervical cytology specimens. The accuracy and precision of this test for all other specimen sources has been verified in the Cytopathology Laboratory of the [facility] and has not been cleared or approved by the U.S. Food and Drug Administration. Clinical correlation is advised. CLINICAL HISTORY Date of Last Menstrual Period: Not Provided Menstrual History: Unknown Other Clinical Conditions: Screening Pap SPECIMEN SOURCE A: PAP SMEAR (SUREPATH) CE Patient Name: KEDAR CASTILLO : 1970 (Age: 51) Sex: F Institution: [facility] Location: [facility] Date of Collection: 08/08/2022 Date of Reported: [...] lowers the sensitivity of mammography. POS - [id number] Narrative 12/16/2019 11:36 AM EDT 48-year-old female [...] whichlowers the sensitivity of mammography. POS - [id number] us Jeff WALTON IMG MG EXAMS Final Result * (ABNORMAL) Basic metabolic panel (01/11/2018 4:51 AM EDT) SODIUM 139 133 - 146 mmol/L [facility] CHLORIDE 101 96 - 108 mmol/L [facility] POTASSIUM 3.7 3.3 - 5.1 mmol/L [facility] CO2 26 21 - 35 mmol/L [facility] BUN 8 6 - 19 mg/dL [facility] CREATININE 0.60 0.5 - 1.5 mg/dL [facility] GLUCOSE 112(H) 70 - 99 mg/dL [facility] CALCIUM 9.0 8.4 - 10.3 mg/dL [facility] EGFR 109 >59 mL/min/1.7 3m2 [facility] Comment:If patient is black, multiply result by 1.159. Estimated glomerular filtration rate calculated using the CKD-EPI equation. ANION GAP 16 10 - 20 mmol/L [facility] Blood 01/11/2018 4:51 AM EDT 01/11/2018 4:58 AM EDT us Sterling Felix MD LAB BLOOD ORDERABLES Final Re sult [facility] [address] [place] [address] from Last 3 Months or Most Recently Relevant to Health Maintenance Insurance [facility] [place] [address] [place] [address] ACO [facility] ACO [facility] ACO [facility] Advance Directives For more information, please contact: [phone] (9AM - 5PM [facility], Saturday-Saturday) * Full Code (Latest Code Status on File) Date Activated Date Inactivated Comments 10/18/2022 11:12 AM Question Answer Comments Code Status Confirmed With: Patient Care Teams Poured Pipe Maker Relationship Specialty Start Date End Date Ashish Rangel MD [email or web address] PCP - General Family Medicine 06/01/20 Additional Source Comments The information contained in this document represents components of the legal health record. It is not the complete legal health record.[facility]
== END 2025-02-15 07:22 | disposition home or self-care (01) ==
LOC: HO.MRI 07:21
PROVIDERS: PCP Family Medicine; Visit Provider Physician Assistant
DX: M17.12 Unilateral primary osteoarthritis, left knee (principal); S82.142D Displaced bicondylar fracture of left tibia, subsequent encounter for closed fracture with routine healing
CPT/HCPCS: 73721

== ENCOUNTER → 2025-04-06 10:56 | Outpatient (BNVA) | payer OTHER, SELFPAY | PROVIDERS: PCP Family Medicine | DX: Z01.818 Encounter for other preprocedural examination (principal) ==